=== PATIENT | female | born 1945 | race Caucasian/White ===

== ENCOUNTER 2017-10-13 09:44 | Outpatient (CLI) | payer MEDICARE, BC | END 2017-10-13 09:45 | disposition home or self-care (01) | LOC: BICRAD 09:44 | PROVIDERS: ATTEND Allergy & Immunology | DX: Z03.89 Encounter for observation for other suspected diseases and conditions ruled out (principal) | CPT/HCPCS: 71046 ==

== ENCOUNTER → 2019-02-22 | Day surgery (SDC) | payer MEDICARE, BC ==
[2019-02-21 14:52] VITALS: BMI 36.0
[~2019-02-22] MED LIST: Dexamethasone 20 MG/5 ML VIAL ONE; Lidocaine 1% PF 5 ML VIAL ONE; Ondansetron PF 4 MG/2 ML Vial ONE; PHENYLEPHRINE-NS 100 MCG/ML 10 ML SYRINGE ONE; PROPOFOL 200 MG/20 ML VIAL ONE; ePHEDrine 50 MG/ML VIAL ONE
[2019-02-22 11:59] LABS: Hemoglobin 12.4 g/dL (12.0-16.0); Mean Corpuscular HGB CONC 33.9 g/dL (32.0-36.0); Mean Corpuscular Hemoglobin 29.2 pg (27.0-31.0); Mean Platelet Volume 6.4 fL (7.4-10.4); Platelet Count 205 thou/uL (130-400); RBC Distribution Width 12.7 % (11.5-14.5); Red Blood Cell (RBC) Count 4.26 mill/uL (4.20-5.40); White Blood Cell (WBC) Count 6.3 thou/uL (4.8-10.8)
[2019-02-22 12:21] LABS: Anion Gap 10 mmol/L (10-20); BUN (Urea Nitrogen) 11 mg/dL (9.8-20.1); Calc. Creatinine Clearance 91 mL/min (70-130); Calcium 9.1 mg/dL (7.8-10.44); Carbon Dioxide 25 mmol/L (23-31); Chloride 102 mmol/L (98-107); Estimated GFR-MDRD 67; Glucose 181 mg/dL (83-110); Potassium 4.1 mmol/L (3.5-5.1); Sodium 133 mmol/L (136-145)
--- NOTE | 2019-02-22 13:02 | MRI ---
EXAM: MRI Lumbar Spine WO Con PROVIDED CLINICAL HISTORY: Chronic low back pain COMPARISON: None FINDINGS: 5 lumbar vertebral bodies are assumed. Grade 1 anterolisthesis of L4 on L5. Lumbar alignment appears otherwise normal. Vertebral body heights are preserved. No focal concerning regional marrow signal abnormality apparent. The conus medullaris is normal in signal and terminates at an appropriate level . The visualized extra spinal soft tissues demonstrate no significant abnormality. At L1-2, there is no significant central canal or foraminal narrowing apparent. At L2-3, there is a broad-based disc bulge and bilateral facet arthritis. There is no significant for aminal narrowing apparent. Mild central canal stenosis. At L3-4, there is bilateral facet arthritis without significant central canal stenosis apparent. Ther e is mild left foraminal narrowing. At L4-5, there is a broad-based disc bulge and advanced bilateral facet arthritis. There is moderate central canal stenosis. There is severe right and moderate left foraminal narrowing. At L5-S1, there is bilateral facet arthritis without significant central canal or foraminal narrowing apparent. IMPRESSION: Lumbar degenerative changes producing canal and foraminal narrowing as described above.
== END ==
LOC: SDC/OP 02-08 11:19
PROVIDERS: ATTEND Internal Medicine
DX: M48.062 Spinal stenosis, lumbar region with neurogenic claudication (principal); M54.16 Radiculopathy, lumbar region
CPT/HCPCS: 36415; 72148; 80048; 85027; 93005; 93010; J1100; J2001; J2405; J2704; J3490

== ENCOUNTER 2019-03-07 13:20 | Outpatient (CLI) | payer MEDICARE, BC ==
[2019-03-07 14:03] LABS: #Eosinphils 0.2 thou/uL (0.0-0.7); #Lymphocytes 2.2 thou/uL (1.20-3.40); #Monocytes 0.6 thou/uL (0.11-0.59); #Neutrophils 4.1 thou/uL (1.40-6.50); %Basophils 0.5 % (0.0-1.0); %Eosinophils 2.4 % (0.0-10.0); %Lymphocytes 30.5 % (21.0-51.0); %Neutrophils 58.6 % (42.0-75.0); Hemoglobin 12.7 g/dL (12.0-16.0); Mean Corpuscular HGB CONC 34.1 g/dL (32.0-36.0); Mean Corpuscular Hemoglobin 29.5 pg (27.0-31.0); Mean Corpuscular Volume 86.5 fL (78.0-98.0); Mean Platelet Volume 6.4 fL (7.4-10.4); Platelet Count 214 thou/uL (130-400); RBC Distribution Width 12.7 % (11.5-14.5); Red Blood Cell (RBC) Count 4.29 mill/uL (4.20-5.40); White Blood Cell (WBC) Count 7.1 thou/uL (4.8-10.8)
[2019-03-07 14:09] LABS: INR-International Normal Ratio 1.1; PTT 30.3 SEC (22.9-36.1); Prothrombin Time 13.8 SEC (12.0-14.7)
[2019-03-07 14:24] LABS: ALT (SGPT) 19 U/L (8-55); AST (SGOT) 15 U/L (5-34); Albumin 3.9 g/dL (3.4-4.8); Alkaline Phosphatase 77 U/L (40-110); Anion Gap 10 mmol/L (10-20); BUN (Urea Nitrogen) 12 mg/dL (9.8-20.1); Bilirubin, Direct 0.2 mg/dL (0.1-0.3); Bilirubin, Total 0.4 mg/dL (0.2-1.2); Calc. Creatinine Clearance 0 mL/min (70-130); Calcium 9.5 mg/dL (7.8-10.44); Carbon Dioxide 29 mmol/L (23-31); Chloride 102 mmol/L (98-107); Estimated GFR-MDRD 58; Globulin 2.6 g/dL (2.4-3.5); Glucose 210 mg/dL (83-110); Potassium 3.9 mmol/L (3.5-5.1); Protein, Total 6.5 g/dL (6.0-8.3); Sodium 137 mmol/L (136-145)
--- NOTE | 2019-03-07 20:45 | EKG ---
Test Reason : Blood Pressure : / mmHG Vent. Rate : 063 BPM Atrial Rate : 063 BPM P-R Int : 150 ms QRS Dur : 090 ms QT Int : 398 ms P-R-T Axes : 078 055 050 degrees QTc Int : 407 ms Normal sinus rhythm with sinus arrhythmia Normal ECG When compared with ECG of 22-FEB-2019 11:38, (Unconfirmed) No changes Confirmed by ROMELIA GOLDMAN, SBailee ([id number]) on 03/07/2019 8:44:40 PM Referred By: YASMIN Confirmed By:DR. Yonathan LEÓN MD
== END 2019-03-07 13:21 | disposition home or self-care (01) ==
LOC: LABBT 13:20
PROVIDERS: ATTEND Internal Medicine Cardiovascular Disease
DX: Z01.818 Encounter for other preprocedural examination (principal)
CPT/HCPCS: 80053; 80076; 85025; 85610; 85730; 93005; 93010

== ENCOUNTER 2019-03-13 07:03 | Day surgery (SDC) | payer MEDICARE, BC ==
[2019-03-07 13:02] VITALS: BMI 36.0
[2019-03-13] MEDS ORDERED: Diazepam 5 MG TAB ONE (08:07)
[2019-03-13] MEDS ORDERED: Lidocaine 1% (PF) 30 ML VIAL ONE (08:56)
[2019-03-13 09:05] LABS: Cardiac Risk 3.3 (Less than 4.5)
[2019-03-13] MEDS ORDERED: Midazolam HCl 2 mg/2 ml Vial ONE (09:34)
[2019-03-13] MEDS ORDERED: Iopamidol 370 76% 100 ML VIAL ONE (09:42)
--- NOTE | 2019-03-13 19:33 | DIS ---
DATE OF ADMISSION: 03/13/2019 DATE OF DISCHARGE: 03/13/2019 DISCHARGE DIAGNOSES: 1. Coronary artery disease. 2. Hypertension. 3. Dyslipidemia. 4. Diabetes mellitus. 5. GE reflux. This patient presents for evaluation of increasing chest discomfort. The patient has a long history of coronary artery disease. In 2014, she underwent a cardiac catheterization and found to have moderate CAD. The patient has been on medical therapy. She reported having increasing angina. In February, the patient was in the hospital with recurrent chest pain. She underwent a Cardiolite stress, revealed normal left ventricular systolic function with no evidence of ischemia. The patient continued to have chest discomfort and was admitted for further cardiac evaluation. HOSPITAL COURSE: the patient underwent a left heart catheterization and found to have normal left ventricular ejection fraction of 55% to 60%. The LAD had a 30% proximal lesion. The left circumflex artery had a 20% lesion. The right coronary artery had a 50% proximal lesion and 70% lesion in posterior left ventricular branch. The patient was felt to have no progressive coronary artery disease from previous catheterization several years ago. The patient will continue on medical therapy. A followup PET scan will be obtained to see if there is any evidence of ischemia. The patient will continue on her present medical regimen. DISCHARGE MEDICATIONS: Will include the following; 1. Protonix 40 daily. 2. Norvasc 5 mg daily. 3. Plavix 75 daily. 4. Micardis 40 daily. 5. Vascepa two tablets p.o. b.i.d. 6. Ranexa 1000 b.i.d. 7. Bystolic 20 daily. 8. Crestor 10 daily. 9. Hydrochlorothiazide 25 mg p.o. daily. 10. Trulicity. 11. Insulin. Please call my office. Job ID: [id number]
== END 2019-03-13 16:00 | disposition home or self-care (01) ==
LOC: CCL 07:03
PROVIDERS: ATTEND Internal Medicine Cardiovascular Disease
PROC: 4A023N7 Measurement of Cardiac Sampling and Pressure, Left Heart, Percutaneous Approach (ICD-10-PCS; principal; 2019-03-13)
PROC: B2111ZZ Fluoroscopy of Multiple Coronary Arteries using Low Osmolar Contrast (ICD-10-PCS; 2019-03-13)
DX: I25.10 Atherosclerotic heart disease of native coronary artery without angina pectoris (principal); E11.9 Type 2 diabetes mellitus without complications; I10 Essential (primary) hypertension; E78.00 Pure hypercholesterolemia, unspecified; K21.9 Gastro-esophageal reflux disease without esophagitis; E78.5 Hyperlipidemia, unspecified; E66.09 Other obesity due to excess calories; Z68.36 Body mass index [BMI] 36.0-36.9, adult; Z79.02 Long term (current) use of antithrombotics/antiplatelets; Z79.4 Long term (current) use of insulin; Z79.899 Other long term (current) drug therapy; Z88.0 Allergy status to penicillin; Z88.2 Allergy status to sulfonamides; Z88.5 Allergy status to narcotic agent
CPT/HCPCS: 36415; 80061; 93458; 99152; 99153; C1769; J1644; J2001; J2250; Q9967

== ENCOUNTER 2020-07-24 01:01 | Inpatient (IN) | payer MEDICARE, BC ==
[2020-07-24 01:30] LABS: #Basophils 0.1 thou/uL (0.0-0.2); #Eosinphils 0.2 thou/uL (0.0-0.7); #Lymphocytes 3.4 thou/uL (1.20-3.40); #Monocytes 0.6 thou/uL (0.11-0.59); %Basophils 1.3 % (0.0-1.0); %Eosinophils 2.7 % (0.0-10.0); %Lymphocytes 40.4 % (21.0-51.0); %Monocytes 7.7 % (0.0-10.0); %Neutrophils 47.9 % (42.0-75.0); Hemoglobin 13.2 g/dL (12.0-16.0); Mean Corpuscular HGB CONC 33.4 g/dL (32.0-36.0); Mean Corpuscular Hemoglobin 29.4 pg (27.0-31.0); Mean Platelet Volume 6.7 fL (7.4-10.4); Platelet Count 215 thou/uL (130-400); RBC Distribution Width 12.4 % (11.5-14.5); Red Blood Cell (RBC) Count 4.48 mill/uL (4.20-5.40); White Blood Cell (WBC) Count 8.4 thou/uL (4.8-10.8)
[2020-07-24] MEDS ORDERED: Aspirin Chewable 81 MG TAB ONE ×2 (01:31→08:38)
[2020-07-24 01:50] LABS: ALT (SGPT) 25 U/L (8-55); AST (SGOT) 21 U/L (5-34); Alkaline Phosphatase 82 U/L (40-110); Anion Gap 15 mmol/L (10-20); BUN (Urea Nitrogen) 23 mg/dL (9.8-20.1); Bilirubin, Total 0.3 mg/dL (0.2-1.2); CK (CPK) 436 U/L (29-168); Calc. Creatinine Clearance 0 mL/min (70-130); Calcium 9.4 mg/dL (7.8-10.44); Carbon Dioxide 26 mmol/L (23-31); Chloride 102 mmol/L (98-107); Glucose 242 mg/dL (83-110); Potassium 4.5 mmol/L (3.5-5.1); Sodium 138 mmol/L (136-145)
--- NOTE | 2020-07-24 03:40 | PDOC.HHP ---
Hospitalist HPI Chest pain History of Present Illness: This is a 75-year-old male patient with a history of coronary artery disease, hypertension, diabetes mellitus and hyperlipidemia, WPW status post ablation who presents to the ED on account of chest pain noted earlier this morning. Of note she has been having intermittent chest pain for the past couple of weeks at least every other day with activity. Earlier this morning she was taking her pills for GERD when stifling chest pain up to 7-8 over 10 radiating to her neck and crushing in nature. Nonradiating. She noted no associated nausea or sweating palpitations wheeze or shortness of breath. She however notes intermittent swelling of her feet bilaterally She took nitroglycerin this time to no avail. She subsequently added Ranexa. He has been decided that she should come to the ED and has brought her in. Pain started to resolve by the time she got here. Of note she had cardiac catheterization in [address] Pérez's noting 30% stenosis in LAD, 20% in proximal RCA and 20% circumflex. Last echocardiogram about 5 months ago showed EF of 60 to 65% with no significant structural defects. At presentation her blood pressure was 203/85, pulse 74, respiratory 20 and saturation 97% on room air. Labs showed unremarkable CBC, BMP showed hyperglycemia of 242 and creatinine kinase of 436. Troponin was 0.015. EKG showed normal sinus rhythm and chest x- ray revealed some bilateral congestion. She received aspirin at presentation prior to hospitalist team being consulted for admission. Allergies/Adverse Reactions: Allergy/AdvReac Type Severity Reaction Status Date / Time codeine Allergy Intermediate SEVERE Verified 08/27/19 14:08 HEADACHE, RASH Penicillins Allergy Intermediate WELPS Verified 08/27/19 14:08 Sulfa (Sulfonamide Allergy Intermediate Rash Verified 08/27/19 14:08 Antibiotics) Home Medications: Medication Instructions Recorded Confirmed Type Clopidogrel Bisulfate [Plavix] 75 mg PO DAILY 06/29/15 03/07/19 History Insulin Glargine,Hum.Rec.Anlog 70 unit SQ BID 06/29/15 03/07/19 History [Lantus Solostar] Levothyroxine Sodium [Synthroid] 75 mcg PO DAILY 06/29/15 03/07/19 History Nebivolol HCl [Bystolic] 20 mg PO BID 06/29/15 03/07/19 History Nitroglycerin [Nitrostat] 0.4 mg SL Q5MIN PRN 06/29/15 03/07/19 History Pantoprazole [Protonix] 40 mg PO DAILY 06/29/15 03/07/19 History Amlodipine [Norvasc] 1 tab PO DAILY 02/21/19 03/07/19 History Aspirin/Acetaminophen/Caffeine 2 tab PO BID PRN 02/21/19 03/07/19 History [Excedrin Extra Strength Caplet] Hydrochlorothiazide 1 tab PO DAILY 02/21/19 03/07/19 History Icosapent Ethyl [Vascepa] 2 cap PO BID 02/21/19 03/07/19 History Insulin Lispro [Humalog Kwikpen] 15 unit SQ TID-WM PRN 02/21/19 03/07/19 History Ranolazine [Ranolazine ER] 1 tab PO BID 02/21/19 03/07/19 History Rosuvastatin Calcium 40 mg PO HS 02/21/19 03/07/19 History Amlodipine [Norvasc] 5 mg PO DAILY 02/24/19 02/24/19 History Amlodipine [Norvasc] 5 mg PO DAILY 02/24/19 02/24/19 History Aspirin/Acetaminophen/Caffeine 2 tab PO Q6H 02/24/19 02/24/19 History [Excedrin Extra Strength Caplet] Clopidogrel Bisulfate [Clopidogrel] 75 mg PO HS 02/24/19 02/24/19 History HumaLOG [HumaLOG Vial] 15 units SC AC 02/24/19 02/24/19 History Hydrochlorothiazide 25 mg PO DAILY 02/24/19 02/24/19 History Icosapent Ethyl [Vascepa] 2 cap PO BID 02/24/19 02/24/19 History Insulin Glargine,Hum.Rec.Anlog 75 unit SC BID 02/24/19 02/24/19 History [Lantus] Levothyroxine Sodium 75 mg PO DAILY 02/24/19 02/24/19 History Nebivolol HCl [Bystolic] 40 mg PO BID 02/24/19 02/24/19 History Pantoprazole [Protonix] 40 mg PO DAILY 02/24/19 02/24/19 History Ranolazine [Ranolazine ER] 1,000 mg PO BID 02/24/19 02/24/19 History Rosuvastatin [Crestor] 10 mg PO HS 02/24/19 02/24/19 History Telmisartan [Micardis] 40 mg PO BID 02/24/19 02/24/19 History Icosapent Ethyl [Vascepa] 1 gm PO DAILY 03/07/19 03/07/19 History Telmisartan [Micardis] 40 mg PO BID 03/07/19 03/07/19 History Past History: PMHx:coronary artery disease, hypertension, diabetes mellitus and hyperlipidemia PSHx: Cholecystectomy, hysterectomy, ablation for WPW FHx: Diabetes mellitus, hypertension, heart failure, HI Social: Lives with . Denies smoking, alcohol or illicit drug use Hospitalist HPI ROS Constitutional: denies: fever, chills, sweats, weakness, malaise Respiratory: denies: cough, shortness of breath, hemoptysis, SOB with excertion Cardiovascular: reports: chest pain, palpitations, edema. denies: orthopnea, paroxysmal noc. dyspnea Gastrointestinal: denies: nausea, vomiting, abdominal pain, diarrhea Genitourinary: denies: dysuria, frequency, incontinence, hematuria Musculoskeletal: denies: neck pain, shoulder pain, arm pain, back pain Neurological: denies: weakness, numbness, incoordination, change in speech All other systems reviewed; all pertinent +/- noted in HPI/Subj Hospitalist Exam General Appearance: awake alert General - other findings: In no acute distress Eye: PERRL, anicteric sclera ENT: normocephalic atraumatic Respiratory: CTAB, no wheezes, no rales, no ronchi Gastrointestinal: soft, non-tender, non-distended, normal bowel sounds Extremities: no cyanosis, no clubbing, 1+ LE edema Skin: normal turgor Neurological: cranial nerve grossly intact, no weakness, no focal deficits Psychiatric: normal affect, normal behavior, A&O x 3 Hospitalist Results Result Diagrams: 07/24/20 01:15 07/24/20 01:15 Lab results: Laboratory Last Values WBC 8.4 thou/uL (4.8-10.8) 07/24/20 01:15 RBC 4.48 mill/uL (4.20-5.40) 07/24/20 01:15 Hgb 13.2 g/dL (12.0-16.0) 07/24/20 01:15 Hct 39.4 % (36.0-47.0) 07/24/20 01:15 MCV 88.0 fL (78.0-98.0) 07/24/20 01:15 MCH 29.4 pg (27.0-31.0) 07/24/20 01:15 MCHC 33.4 g/dL (32.0-36.0) 07/24/20 01:15 RDW 12.4 % (11.5-14.5) 07/24/20 01:15 Plt Count 215 thou/uL (130-400) 07/24/20 01:15 MPV 6.7 fL (7.4-10.4) L 07/24/20 01:15 Neutrophils % 47.9 % (42.0-75.0) 07/24/20 01:15 Lymphocytes % 40.4 % (21.0-51.0) 07/24/20 01:15 Monocytes % 7.7 % (0.0-10.0) 07/24/20 01:15 Eosinophils % 2.7 % (0.0-10.0) 07/24/20 01:15 Basophils % 1.3 % (0.0-1.0) H 07/24/20 01:15 Neutrophils # 4.0 thou/uL (1.40-6.50) 07/24/20 01:15 Lymphocytes # 3.4 thou/uL (1.20-3.40) 07/24/20 01:15 Monocytes # 0.6 thou/uL (0.11-0.59) H 07/24/20 01:15 Eosinophils # 0.2 thou/uL (0.0-0.7) 07/24/20 01:15 Basophils # 0.1 thou/uL (0.0-0.2) 07/24/20 01:15 Sodium 138 mmol/L (136-145) 07/24/20 01:15 Potassium 4.5 mmol/L (3.5-5.1) 07/24/20 01:15 Chloride 102 mmol/L (98-107) 07/24/20 01:15 Carbon Dioxide 26 mmol/L (23-31) 07/24/20 01:15 Anion Gap 15 mmol/L (10-20) 07/24/20 01:15 BUN 23 mg/dL (9.8-20.1) H 07/24/20 01:15 Creatinine 1.10 mg/dL (0.6-1.1) 07/24/20 01:15 Estimated GFR (MDRD) 49 07/24/20 01:15 Glucose 242 mg/dL (83-110) H 07/24/20 01:15 Calcium 9.4 mg/dL (7.8-10.44) 07/24/20 01:15 Total Bilirubin 0.3 mg/dL (0.2-1.2) 07/24/20 01:15 AST 21 U/L (5-34) 07/24/20 01:15 ALT 25 U/L (8-55) 07/24/20 01:15 Alkaline Phosphatase 82 U/L (40-110) 07/24/20 01:15 Creatine Kinase 436 U/L (29-168) H 07/24/20 01:15 Troponin I 0.015 ng/mL (< 0.028) 07/24/20 01:15 Serum Total Protein 7.0 g/dL (5.8-8.1) 07/24/20 01:15 Albumin 4.0 g/dL (3.4-4.8) 07/24/20 01:15 Globulin 3.0 g/dL (2.4-3.5) 07/24/20 01:15 Albumin/Globulin Ratio 1.3 g/dL (1.2-2.2) 07/24/20 01:15 Hospitalist H&P A/P Plan: This is a 75-year-old female patient history of diabetes mellitus, hypercholesterolemia and WPW presents with chest pain. Chest pain Likely cardiac Pain currently resolved with nitroglycerin and Ranexa Cardiac catheterization about 5 months ago showed no significant coronary stenosis Started on aspirinwe will continue Trend troponin Continue statins N.p.o. Stress test in a.m. Pulmonary congestion Likely heart failure exacerbation Last echo a year ago showed normal EFwe will repeat We will diuresis with Lasix for now Monitor electrolytes Cardiology consultation if indicated Hypertension BP elevated at presentation however currently systolic in the 130s As needed hydralazine Monitor Diabetes mellitus Correctional insulin Monitor glucose. History of WPW status post ablation VT prophylaxisLovenox CODE STATUS full code
[2020-07-24] MEDS ORDERED: Dextrose 50% Abboject 50 ML SYRINGE SLOW IVP PRN (04:12)
[2020-07-24] MEDS ORDERED: Dextrose 5% in Water 1,000 ML IV PRN (04:12)
[2020-07-24] MEDS ORDERED: Nitroglycerin 0.4 MG TAB (25 Tab Bottle) SL PRN (04:30)
[2020-07-24 05:30] LABS: Troponin I 0.015 ng/mL (< 0.028)
--- NOTE | 2020-07-24 07:57 | RAD ---
Exam: Chest one view HISTORY:Chest pain Comparison: 02/24/2019, 02/23/2019 FINDINGS: Cardiac silhouette: Mildly enlarged cardiac silhouette Aorta: Atherosclerosis Pulmonary vessels: Normal Costophrenic angles: Clear LUNGS: No masses or consolidation. Pneumothorax: None Osseous abnormalities: None IMPRESSION: 1. Atherosclerosis. 2. Mild cardiomegaly. No evidence of congestive heart failure.
[2020-07-24] MEDS: Aspirin Chewable 81 MG TAB PO SCH (08:36)
--- NOTE | 2020-07-24 10:50 | NM ---
Exam: Nuclear medicine cardiac stress with EF and wall motion HISTORY: Chest pain. TECHNIQUE: Patient was administered 32.10 mCi of technetium-99m Myoview intravenously. Stress only im ages were performed. FINDINGS: Homogeneous distribution of radiotracer. End diastolic volume is 70 mL. End-systolic volume is 17 mL. Cardiac gating: Normal wall motion and thickening. 76% ejection fraction. IMPRESSION: 1. Homogeneous distribution of radiotracer. No reversibility or fixed defect. 2. 76% ejection fraction. Transcribed Date/Time: 07/24/2020 11:10 AM
[2020-07-24] MEDS ORDERED: ADENOSINE 60 MG/20 ML VIAL ONE (10:58)
[2020-07-24] MEDS ORDERED: Potassium Chloride 20 MEQ TAB PO SCH (11:00)
[2020-07-24] MEDS ORDERED: Icosapent Ethyl 1 GM CAPSULE PO SCH (11:00)
[2020-07-24] MEDS ORDERED: Nebivolol HCl 5 MG TAB PO SCH (11:00)
[2020-07-24] MEDS ORDERED: Losartan 25 MG TAB PO SCH (11:00)
[2020-07-24] MEDS ORDERED: Furosemide 20 MG TAB PO SCH (11:00)
--- NOTE | 2020-07-24 11:14 | CON ---
DATE OF CONSULTATION: HISTORY OF PRESENT ILLNESS: The patient is a 75-year-old woman, who presents with midsternal chest discomfort. The patient has a long history of coronary artery disease. She previously underwent a cardiac catheterization in 2014. She was found to have 70% lesion in the right coronary artery. The patient was placed on medical therapy. In 2019, she presented with recurrent chest pain. She underwent a repeat cardiac catheterization. She was found to have a 30% mid LAD lesion, 20% left circumflex lesion. The right coronary had a 20% proximal lesion, 50% mid lesion, and a 70% lesion in the posterior left ventricular branch. The patient was placed on medical therapy. The patient has had chronic stable angina. She was in her usual state of health when yesterday she developed severe midsternal chest pain. This occurred after she swallowed a pill. She became anxious. She had difficulty swallowing a pill. Her blood pressure became elevated. She felt that her blood pressure was elevated and started having chest pain that radiated into her jaw. The patient took Ranexa and eventually a nitroglycerin tablet. Her chest pain resolved after approximately 30 minutes. The patient does report that recently she was taken off amlodipine because of lower extremity edema. The patient denies having any present chest discomfort. PAST MEDICAL HISTORY: 1. Coronary artery disease. 2. Eldrv-Dmldfihpb-Nigbt syndrome. 3. Hypertension. 4. Dyslipidemia. 5. Diabetes mellitus. 6. GE reflux. PAST SURGICAL HISTORY: Bladder suspension, cholecystectomy, hysterectomy, and foot surgery. FAMILY HISTORY: No family history of heart disease. ALLERGIES: CODEINE, PENICILLIN, SULFA, AND NIACIN. SOCIAL HISTORY: Nonsmoker. REVIEW OF SYSTEMS: Ten-point system unremarkable. PHYSICAL EXAMINATION: GENERAL: This is an obese woman, in no acute distress. VITAL SIGNS: Blood pressure 135/50. NECK: Showed no jugular venous distention. LUNGS: Clear to auscultation. HEART: Regular rate and rhythm. Normal S1 and S2 with a 1/6 systolic murmur. ABDOMEN: Nondistended. EXTREMITIES: Showed no edema. VASCULAR: Radial pulses are 2+. LABORATORY DATA: Sodium 138, potassium 4.5, chloride 102, bicarbonate 26, BUN 23, creatinine 1.1, and glucose 242. Troponin was 0.03. BNP 25. White blood cell count 8.4, hemoglobin 13.2, hematocrit 39.4, and platelets are 215. EKG normal sinus rhythm, normal ECG. IMPRESSION: 1. Unstable angina. 2. History of coronary artery disease. 3. Hypertension. 4. Dyslipidemia. 5. Diabetes mellitus. 6. Obesity. 7. History of Qqvyr-Dqibwwwsx-Kaoym syndrome. PLAN: This patient from a cardiac standpoint had an episode of angina. She has recently been taken off amlodipine. Her blood pressure was markedly elevated on admission. The patient states she has been compliant with her medications. I will try her again on Imdur. I will try to add a nitrate to her medical regimen. She does not seem to tolerate Norvasc because of edema. We will follow this patient with you through her hospitalization. Job ID: [id number] MTDD
[2020-07-24 11:28] LABS: SARS-CoV-2 PCR by NAA Not Detected (NotDetected)
[2020-07-24] MEDS ORDERED: Furosemide 40 MG/4 ML VIAL ONE (11:36)
[2020-07-24] MEDS ORDERED: Potassium Chloride 20 MEQ TAB ONE ×2 (11:36)
[2020-07-24] MEDS ORDERED: Enoxaparin Sodium 40 MG/0.4 ML SYRINGE ONE (11:36)
[2020-07-24] MEDS: Furosemide 40 MG/4 ML VIAL SLOW IVP SCH (11:44)
[2020-07-24] MEDS: Enoxaparin Sodium 40 MG/0.4 ML SYRINGE SC SCH (11:44)
[2020-07-24 14:24] VITALS: BMI 39.3
--- NOTE | 2020-07-24 17:10 | PDOC.HOSPP ---
- Subjective Encounter Date: 07/24/20 Encounter Time: 15:00 Subjective: The patient reported severe chest pain radiating to jaw and neck around 1:00 am. She had relief with nitroglycerin and ranexa. She ambulated to the bathroom this afternoon and had no recurrence of chest pain Stress test negative. Pt states her BP was 230 systolic this morning but improved now to 111. She had some abd pain this afternoon from taking all of her BP meds at once - Objective Vital Signs & Weight: Vital Signs (12 hours) Temp Pulse Resp BP BP Pulse Ox 07/24/20 14:10 97.3 F L 73 16 111/54 L 96 07/24/20 13:44 97.7 F 70 16 116/52 L 97 07/24/20 11:10 63 16 108/44 L 97 Weight Weight 229 lb 3.2 oz Result Diagrams: 07/24/20 01:15 07/24/20 01:15 Additional Labs: Accuchecks 07/24/20 08:44 POC Glucose 156 H Hospitalist ROS - Review of Systems Constitutional: denies: fever, chills - Medication Medications: Active Medications Generic Name Dose Route Start Last Admin Trade Name Freq PRN Reason Stop Dose Admin Aspirin 81 mg 07/24/20 09:00 07/24/20 08:36 Aspirin Chewable 81 Mg Tab PO 81 mg DAILY MYLES Administration Enoxaparin Sodium 40 mg 07/24/20 09:00 07/24/20 11:44 Enoxaparin Sodium 40 Mg/0.4 Ml Syringe SC 40 mg 0900 MYLES Administration Furosemide 40 mg 07/24/20 09:00 07/24/20 11:44 Furosemide 40 Mg/4 Ml Vial SLOW IVP 40 mg DAILY MYLES Administration Hospitalist Exam Vitals: Vital Signs (12 hours) Temp Pulse Resp BP BP Pulse Ox 07/24/20 14:10 97.3 F L 73 16 111/54 L 96 07/24/20 13:44 97.7 F 70 16 116/52 L 97 07/24/20 11:10 63 16 108/44 L 97 Weight Weight 229 lb 3.2 oz General Appearance: NAD, awake alert General - other findings: morbidly obese Eye: PERRL, anicteric sclera ENT: normocephalic atraumatic, no oropharyngeal lesions Neck: no JVD Heart: RRR, no murmur, no gallops, no rubs Respiratory: CTAB, no wheezes, no rales, no ronchi Gastrointestinal: soft, non-tender, non-distended, normal bowel sounds Extremities: no cyanosis, no clubbing, no edema Skin: normal turgor, no rashes Neurological: cranial nerve grossly intact, normal sensation to touch, no focal deficits, no new deficit Musculoskeletal: normal tone, normal strength, no muscle wasting Psychiatric: A&O x 3 Hosp A/P - Plan ECHO: EF 65-70%. Mild to moderate TR. Diastolic dysfunction This is a 75 year old female with PMH of CAD, HTN, hypothyroidism presenting with chest pain and indeterminate troponin #Unstable Angina #Hypertensive urgency - had chest pain radiating to jaw relieved with nitroglycerin. Troponin peaked to 0.030 and downtrended. ECHo showed no wall motion abnormalities - BP now controlled. Start imdur tomorrow, continue nebivolol and losartan Hypothyroid - continue levothyroxine Diabetes - continue sliding scale
[2020-07-24] MEDS: HumaLOG 300 UNITS/3 ML VIAL SC PRN ×2 (17:26→20:20)
[2020-07-24 17:37] LABS: CKMB 7.3 ng/mL (0-6.6)
[2020-07-24] MEDS: Icosapent Ethyl 1 GM CAPSULE PO SCH (20:09)
[2020-07-24] MEDS: Losartan 25 MG TAB PO SCH (20:09)
[2020-07-24] MEDS: Nebivolol HCl 5 MG TAB PO SCH (20:10)
[2020-07-24] MEDS ORDERED: Non-Formulary Item 1 EACH (Ranolazine [Ranolazine Er] 1,000 MG Tab.Er.12h) PO SCH (21:00)
[2020-07-24] MEDS ORDERED: Non-Formulary Item 1 EACH (Nebivolol Hcl [Bystolic] 20 MG Tablet) PO SCH (21:00)
[2020-07-25] MEDS: Levothyroxine Sodium 75 MCG TAB PO SCH (05:30)
[2020-07-25] MEDS: HumaLOG 300 UNITS/3 ML VIAL SC PRN ×3 (05:32→18:23)
[2020-07-25 07:53] LABS: #Basophils 0.1 thou/uL (0.0-0.2); #Eosinphils 0.2 thou/uL (0.0-0.7); #Lymphocytes 2.5 thou/uL (1.20-3.40); #Monocytes 0.6 thou/uL (0.11-0.59); #Neutrophils 3.8 thou/uL (1.40-6.50); %Basophils 0.9 % (0.0-1.0); %Lymphocytes 34.9 % (21.0-51.0); %Monocytes 8.2 % (0.0-10.0); %Neutrophils 52.9 % (42.0-75.0); Hemoglobin 12.9 g/dL (12.0-16.0); Mean Corpuscular HGB CONC 34.8 g/dL (32.0-36.0); Mean Corpuscular Hemoglobin 31.1 pg (27.0-31.0); Mean Corpuscular Volume 89.3 fL (78.0-98.0); Mean Platelet Volume 6.9 fL (7.4-10.4); Platelet Count 203 thou/uL (130-400); RBC Distribution Width 12.5 % (11.5-14.5); Red Blood Cell (RBC) Count 4.14 mill/uL (4.20-5.40); White Blood Cell (WBC) Count 7.2 thou/uL (4.8-10.8)
[2020-07-25 08:10] LABS: Anion Gap 12 mmol/L (10-20); BUN (Urea Nitrogen) 24 mg/dL (9.8-20.1); Calc. Creatinine Clearance 76 mL/min (70-130); Calcium 8.8 mg/dL (7.8-10.44); Carbon Dioxide 30 mmol/L (23-31); Chloride 102 mmol/L (98-107); Glucose 219 mg/dL (83-110); Potassium 4.5 mmol/L (3.5-5.1); Sodium 139 mmol/L (136-145)
--- NOTE | 2020-07-25 08:28 | PDOC.HOSPP ---
- Subjective Encounter Date: 07/25/20 (f/u angina) Encounter Time: 08:26 Subjective: Pt was admitted for unstable angina. Pt reports some stomach upset when she takes multiple medications at the same time. States at home she spaces them out. She deneis any current chest pain, n/v. She reports bm's. She had some lightheadedness overnight. - Objective Vital Signs & Weight: Vital Signs (12 hours) Temp Pulse Resp BP Pulse Ox 07/25/20 04:00 98.4 F 85 20 135/78 96 07/25/20 00:00 98.3 F 80 20 112/80 94 L Weight Weight 229 lb 3.2 oz I&O: 07/24/20 07/25/20 07/26/20 06:59 06:59 06:59 Intake Total 610 Balance 610 Result Diagrams: 07/25/20 06:59 07/25/20 06:59 Additional Labs: Accuchecks 07/25/20 07/24/20 07/24/20 05:28 20:07 16:44 POC Glucose 197 H 246 H 287 H 07/24/20 08:44 POC Glucose 156 H EKG Reviewed by me: Yes (tele - sinus 60-70's) Hospitalist ROS - Medication Medications: Active Medications Generic Name Dose Route Start Last Admin Trade Name Alq PRN Reason Stop Dose Admin Aspirin 81 mg 07/24/20 09:00 07/24/20 08:36 Aspirin Chewable 81 Mg Tab PO 81 mg DAILY MYLES Administration Enoxaparin Sodium 40 mg 07/24/20 09:00 07/24/20 11:44 Enoxaparin Sodium 40 Mg/0.4 Ml Syringe SC 40 mg 0900 MYLES Administration Furosemide 40 mg 07/24/20 09:00 07/24/20 11:44 Furosemide 40 Mg/4 Ml Vial SLOW IVP 40 mg DAILY MYLES Administration Insulin Human Lispro 0 units 07/24/20 04:12 07/25/20 05:32 Humalog 300 Units/3 Ml Vial SC 2 unit .MILD SLIDING SCALE PRN Administration Mild Correctional Scale Levothyroxine Sodium 75 mcg 07/25/20 06:00 07/25/20 05:30 Levothyroxine Sodium 75 Mcg Tab PO 75 mcg 0600 MYLES Administration Losartan Potassium 50 mg 07/24/20 21:00 02/19/21 20:09 Losartan 25 Mg Tab PO 50 mg BID MYLES Administration Miscellaneous Medication 2 gm 07/24/20 21:00 07/24/20 20:09 Icosapent Ethyl 1 Gm Capsule PO 2 gm BID MYLES Administration Nebivolol 20 mg 07/24/20 21:00 07/24/20 20:10 Nebivolol Hcl 5 Mg Tab PO 20 mg BID MYLES Administration Ranolazine 1,000 mg 07/24/20 21:00 07/24/20 20:10 Ranolazine 500 Mg Tab PO 1,000 mg BID MYLES Administration Hospitalist Exam Vitals: Vital Signs (12 hours) Temp Pulse Resp BP Pulse Ox 07/25/20 04:00 98.4 F 85 20 135/78 96 07/25/20 00:00 98.3 F 80 20 112/80 94 L Weight Weight 229 lb 3.2 oz General Appearance: NAD Heart: RRR, no murmur Respiratory: CTAB, no wheezes, no rales, no ronchi Gastrointestinal: soft, non-tender, non-distended Extremities: no cyanosis, no clubbing, no edema Psychiatric: normal affect Hosp A/P (1) Unstable angina Status: Acute (2) CAD (coronary artery disease) Code(s): I25.10 - ATHSCL HEART DISEASE OF [place] CORONARY ARTERY W/O ANG PCTRS Status: Chronic (3) DM type 2 (diabetes mellitus, type 2) Status: Chronic Qualifiers: Diabetes mellitus long-term insulin use: with long-term use (4) HTN (hypertension) Code(s): I10 - ESSENTIAL (PRIMARY) HYPERTENSION Status: Chronic (5) Hypothyroid Code(s): E03.9 - HYPOTHYROIDISM, UNSPECIFIED Status: Acute - Plan #Unstable Angina #Hypertensive urgency - had chest pain radiating to jaw relieved with nitroglycerin. Troponin peaked to 0.030 and downtrended. - echo and stress test unremarkable - on imdur in addition to ranexa, beta-romina, arb and diuretic Hypothyroid - continue levothyroxine - check TSH in am Diabetes - not optimally controlled -add 10 units lantus daily - continue SSI DVT prophy - lovenox GI prophy - not indicated - on home PPI reviewed plan of care with patient/, no questions or further needs at end of eval. Addendum - 17:31 - reviewed with RN and pt takes lantus 100 units BID in addition to meal insulin 20 units TID. Will add 40 units lantus tonight, change to aggressive SSI and bedtime SSI and monitor
[2020-07-25] MEDS ORDERED: Furosemide 20 MG TAB PO SCH (09:00)
[2020-07-25] MEDS: Icosapent Ethyl 1 GM CAPSULE PO SCH ×2 (10:07→21:14)
[2020-07-25] MEDS: Losartan 25 MG TAB PO SCH ×2 (10:08→21:15)
[2020-07-25] MEDS: Potassium Chloride 20 MEQ TAB PO SCH (10:08)
[2020-07-25] MEDS: Aspirin Chewable 81 MG TAB PO SCH (10:08)
[2020-07-25] MEDS: Furosemide 20 MG TAB PO SCH (10:09)
[2020-07-25] MEDS: Nebivolol HCl 5 MG TAB PO SCH ×2 (10:09→21:16)
[2020-07-25] MEDS: Clopidogrel Bisulfate 75 MG TAB PO SCH (10:09)
[2020-07-25] MEDS: Enoxaparin Sodium 40 MG/0.4 ML SYRINGE SC SCH (10:09)
[2020-07-25] MEDS: Insulin Glargine 10 UNITS in Pre-Filled Syringe 1 EACH SC SCH (10:10)
--- NOTE | 2020-07-25 12:04 | PRG ---
DATE OF SERVICE: 07/25/2020 SUBJECTIVE: Ms. Mares is currently doing well. No current complaints. She appears to be doing well on current medical therapy. Blood pressure has also been stable. The patient did undergo a noninvasive stress study that showed no significant ischemia present. LVEF 76%. She also has had an angiogram done in the past that showed moderate to severe coronary artery disease in small vessels. OBJECTIVE: VITAL SIGNS: Blood pressure 144/70, pulse 70, temperature 97.9. LUNGS: Clear to auscultation. HEART: Regular rate and rhythm. ABDOMEN: Soft, nontender, nondistended. EXTREMITIES: No edema. LABORATORY DATA: Peak troponin 0.104. IMPRESSION: 1. Chest pressure. 2. Coronary artery disease. RECOMMENDATIONS: Ms. Mares appears to be doing well. She underwent a noninvasive stress study on 07/24/2020 with no significant ischemia present and a normal LVEF. At this point, we will continue with current medical therapy. She is currently on Plavix in addition to aspirin. She has been off Norvasc. To also continue Bystolic in addition to Ranexa. The patient was also placed on Imdur and can titrate up if needed. Job ID: [id number]
[2020-07-25] MEDS: Furosemide 40 MG/4 ML VIAL SLOW IVP SCH (13:23)
--- NOTE | 2020-07-25 15:18 | EKG ---
Test Reason : Blood Pressure : / mmHG Vent. Rate : 071 BPM Atrial Rate : 071 BPM P-R Int : 150 ms QRS Dur : 080 ms QT Int : 380 ms P-R-T Axes : 059 022 051 degrees QTc Int : 412 ms Normal sinus rhythm Normal ECG Confirmed by MAURY AGUIRRE M.D. ([id number]), index editor DIMITRIOS ANGELES ([id number]) on 07/25/2020 3:17:45 PM Referred By: Confirmed By:MAURY AGUIRRE M.D.
[2020-07-25] MEDS ORDERED: HumaLOG 300 UNITS/3 ML VIAL SC PRN (17:29)
[2020-07-25] MEDS ORDERED: Aspirin/APAP/Caffeine Tab (Excedrin Migraine) PO SCH (20:30)
[2020-07-25] MEDS: Insulin Glargine 40 UNITS in Pre-Filled Syringe SC SCH (21:11)
[2020-07-26] MEDS: Levothyroxine Sodium 75 MCG TAB PO SCH (06:04)
[2020-07-26 06:29] LABS: Anion Gap 14 mmol/L (10-20); BUN (Urea Nitrogen) 24 mg/dL (9.8-20.1); Calc. Creatinine Clearance 79 mL/min (70-130); Calcium 8.5 mg/dL (7.8-10.44); Carbon Dioxide 26 mmol/L (23-31); Chloride 100 mmol/L (98-107); Glucose 178 mg/dL (83-110); Potassium 4.5 mmol/L (3.5-5.1); Sodium 135 mmol/L (136-145)
[2020-07-26] MEDS: Icosapent Ethyl 1 GM CAPSULE PO SCH ×2 (09:21→20:57)
[2020-07-26] MEDS: Potassium Chloride 20 MEQ TAB PO SCH (09:21)
[2020-07-26] MEDS: Nebivolol HCl 5 MG TAB PO SCH ×2 (09:22→20:57)
[2020-07-26] MEDS: Clopidogrel Bisulfate 75 MG TAB PO SCH (09:22)
[2020-07-26] MEDS: Aspirin Chewable 81 MG TAB PO SCH (09:22)
[2020-07-26] MEDS: Furosemide 20 MG TAB PO SCH (09:22)
[2020-07-26] MEDS: Losartan 25 MG TAB PO SCH ×2 (09:22→21:05)
[2020-07-26] MEDS: Insulin Glargine 10 UNITS in Pre-Filled Syringe 1 EACH SC SCH (09:23)
[2020-07-26] MEDS: Enoxaparin Sodium 40 MG/0.4 ML SYRINGE SC SCH (09:23)
--- NOTE | 2020-07-26 10:48 | PDOC.HOSPP ---
- Subjective Encounter Date: 07/26/20 (f/u unstable angina) Encounter Time: 10:47 Subjective: Pt reports overall feeling well but tired. She states she has episodes of the onset of angina, followed by difficulty breathing at times when she is layign back. Last episode was this morning. She states she has to sit up, slow her breathing and the sx resolved. she does not remain in the same position for fear of worsening. She denies any n/v/abd pain - Objective Vital Signs & Weight: Vital Signs (12 hours) Temp Pulse Resp BP Pulse Ox 07/26/20 08:00 98.3 F 65 20 127/60 95 07/26/20 04:48 96 07/26/20 04:00 98.1 F 66 16 105/52 L 93 L 07/26/20 00:35 98.2 F 61 20 111/53 L 96 Weight Weight 228 lb 14.4 oz I&O: 07/25/20 07/26/20 07/27/20 06:59 06:59 06:59 Intake Total 610 1280 Balance 610 1280 Result Diagrams: 07/25/20 06:59 07/26/20 06:00 Additional Labs: Accuchecks 07/26/20 07/25/20 07/25/20 05:35 21:09 16:53 POC Glucose 166 H 243 H 237 H 07/25/20 11:17 POC Glucose 300 H EKG Reviewed by me: Yes (tele - sinus 50-70's) Hospitalist ROS - Medication Medications: Active Medications Generic Name Dose Route Start Last Admin Trade Name Freq PRN Reason Stop Dose Admin Aspirin 81 mg 07/24/20 09:00 07/26/20 09:22 Aspirin Chewable 81 Mg Tab PO 81 mg DAILY MYLES Administration Clopidogrel Bisulfate 75 mg 07/25/20 09:00 07/26/20 09:22 Clopidogrel Bisulfate 75 Mg Tab PO 75 mg DAILY MYLES Administration Enoxaparin Sodium 40 mg 07/24/20 09:00 07/26/20 09:23 Enoxaparin Sodium 40 Mg/0.4 Ml Syringe SC 40 mg 0900 MYLES Administration Furosemide 20 mg 07/25/20 09:00 07/26/20 09:22 Furosemide 20 Mg Tab PO 20 mg QAM MYLES Administration Insulin Glargine 10 units/ 0.1 mls @ 0 mls/hr 07/25/20 09:00 07/26/20 09:23 Miscellaneous Medication SC 0.1 mls QAM MYLES Administration Insulin Glargine 40 units/ 0.4 mls @ 0 mls/hr 07/25/20 21:00 07/25/20 21:11 Miscellaneous Medication SC 0.4 mls HS MYLES Administration Insulin Human Lispro 0 units 07/25/20 17:29 07/25/20 18:23 Humalog 300 Units/3 Ml Vial SC 6 unit .AGGRESSIVE SLIDING PRN Administration Aggressive Correctional Scale Insulin Human Lispro 0 units 07/25/20 17:29 07/25/20 21:11 Humalog 300 Units/3 Ml Vial SC 2 unit .BEDTIME SLIDING SC PRN Administration Bedtime Correctional Scale Isosorbide Mononitrate 30 mg 07/25/20 09:00 07/26/20 09:22 Isosorbide Mononitrate Er 30 Mg Tab PO 30 mg QAM MYLES Administration Levothyroxine Sodium 75 mcg 07/25/20 06:00 07/26/20 06:04 Levothyroxine Sodium 75 Mcg Tab PO 75 mcg 0600 MYLES Administration Losartan Potassium 50 mg 07/24/20 21:00 07/26/20 09:22 Losartan 25 Mg Tab PO 50 mg BID MYLES Administration Miscellaneous Medication 2 gm 07/24/20 21:00 07/26/20 09:21 Icosapent Ethyl 1 Gm Capsule PO 2 gm BID MYLES Administration Nebivolol 20 mg 07/24/20 21:00 07/26/20 09:22 Nebivolol Hcl 5 Mg Tab PO 20 mg BID MYLES Administration Pantoprazole Sodium 40 mg 07/25/20 09:00 07/26/20 09:22 Pantoprazole 40 Mg Tab PO 40 mg DAILY MYLES Administration Potassium Chloride 20 meq 07/25/20 09:00 07/26/20 09:21 Potassium Chloride 20 Meq Tab PO 20 meq DAILY MYLES Administration Ranolazine 1,000 mg 07/24/20 21:00 07/26/20 09:22 Ranolazine 500 Mg Tab PO 1,000 mg BID MYLES Administration Hospitalist Exam Vitals: Vital Signs (12 hours) Temp Pulse Resp BP Pulse Ox 07/26/20 08:00 98.3 F 65 20 127/60 95 07/26/20 04:48 96 07/26/20 04:00 98.1 F 66 16 105/52 L 93 L 07/26/20 00:35 98.2 F 61 20 111/53 L 96 Weight Weight 228 lb 14.4 oz General Appearance: NAD Heart: RRR, no murmur Respiratory: CTAB, no wheezes, no rales, no ronchi Gastrointestinal: soft, non-tender, non-distended, normal bowel sounds Extremities: no cyanosis, no clubbing, no edema Psychiatric: normal affect Hosp A/P (1) Unstable angina Status: Acute (2) CAD (coronary artery disease) Code(s): I25.10 - ATHSCL HEART DISEASE OF [place] CORONARY ARTERY W/O ANG PCTRS Status: Chronic (3) DM type 2 (diabetes mellitus, type 2) Status: Chronic Qualifiers: Diabetes mellitus dispatcher automobile rental insulin use: with dispatcher automobile rental use (4) HTN (hypertension) Code(s): I10 - ESSENTIAL (PRIMARY) HYPERTENSION Status: Chronic (5) Hypothyroid Code(s): E03.9 - HYPOTHYROIDISM, UNSPECIFIED Status: Acute - Plan #Unstable Angina - pt continues to have some sx, although different than presentation - message sent to Cards/Dr. Harvey for assistance - continue long-acting nitrate and other meds as ordered #Hypertensive urgency - had chest pain radiating to jaw relieved with nitroglycerin. Troponin peaked to 0.030 and downtrended. - echo and stress test unremarkable - on imdur in addition to ranexa, beta-romina, arb and diuretic Hypothyroid - continue levothyroxine - 0n appropriate replacement - TSH checked today Diabetes - on lantus 40 units at night, 10 units daytime - which is significantly lower than home. Will continue this for now and pt will need close f/u with her PCP or Event Promotions Coordinator DVT prophy - lovenox GI prophy - not indicated - on home PPI reviewed plan of care with patient/, no questions or further needs at end of eval. Await further input from Cardiology to determine timing of discharge to home.
[2020-07-26] MEDS: HumaLOG 300 UNITS/3 ML VIAL SC PRN ×2 (12:06→18:05)
[2020-07-26] MEDS: Acetaminophen 500 MG TAB PO PRN (18:24)
[2020-07-26] MEDS: Insulin Glargine 40 UNITS in Pre-Filled Syringe SC SCH (20:53)
[2020-07-27] MEDS: Levothyroxine Sodium 75 MCG TAB PO SCH (05:42)
[2020-07-27] MEDS: HumaLOG 300 UNITS/3 ML VIAL SC PRN ×2 (05:50→17:36)
[2020-07-27] MEDS: Insulin Glargine 10 UNITS in Pre-Filled Syringe 1 EACH SC SCH (08:46)
[2020-07-27] MEDS: Aspirin Chewable 81 MG TAB PO SCH (08:47)
[2020-07-27] MEDS: Enoxaparin Sodium 40 MG/0.4 ML SYRINGE SC SCH (08:47)
[2020-07-27] MEDS: Potassium Chloride 20 MEQ TAB PO SCH (08:48)
[2020-07-27] MEDS: Losartan 25 MG TAB PO SCH ×2 (08:48→22:59)
[2020-07-27] MEDS: Furosemide 20 MG TAB PO SCH (08:49)
[2020-07-27] MEDS: Clopidogrel Bisulfate 75 MG TAB PO SCH (08:49)
[2020-07-27] MEDS: Nebivolol HCl 5 MG TAB PO SCH ×2 (08:50→23:00)
[2020-07-27] MEDS: Icosapent Ethyl 1 GM CAPSULE PO SCH ×2 (12:10→22:58)
--- NOTE | 2020-07-27 13:27 | PDOC.HOSPP ---
- Subjective Encounter Date: 07/27/20 Encounter Time: 13:26 Subjective: still having episodes of upper chest tightness with SOB - Objective Vital Signs & Weight: Vital Signs (12 hours) Temp Pulse Resp BP Pulse Ox 07/27/20 11:56 97.6 F 67 18 139/77 07/27/20 08:31 97.8 F 71 18 122/68 95 07/27/20 04:00 98.0 F 76 16 134/64 93 L 07/27/20 03:31 94 L Weight Weight 228 lb 14.4 oz I&O: 07/26/20 07/27/20 07/28/20 06:59 06:59 06:59 Intake Total 1280 1790 Balance 1280 1790 Result Diagrams: 07/25/20 06:59 07/26/20 06:00 Additional Labs: Accuchecks 07/27/20 07/27/20 07/26/20 10:17 05:46 20:53 POC Glucose 290 H 223 H 204 H 07/26/20 15:44 POC Glucose 190 H Hospitalist ROS - Medication Medications: Active Medications Generic Name Dose Route Start Last Admin Trade Name Freq PRN Reason Stop Dose Admin Acetaminophen 1,000 mg 07/26/20 18:03 07/26/20 18:24 Acetaminophen 500 Mg Tab PO 1,000 mg Q8H PRN Administration Moderate to Severe Pain (6-10) Aspirin 81 mg 07/24/20 09:00 07/27/20 08:47 Aspirin Chewable 81 Mg Tab PO 81 mg DAILY MYLES Administration Clopidogrel Bisulfate 75 mg 07/25/20 09:00 07/27/20 08:49 Clopidogrel Bisulfate 75 Mg Tab PO 75 mg DAILY MYLES Administration Enoxaparin Sodium 40 mg 07/24/20 09:00 07/27/20 08:47 Enoxaparin Sodium 40 Mg/0.4 Ml Syringe SC 40 mg 0900 MYLES Administration Furosemide 20 mg 07/25/20 09:00 07/27/20 08:49 Furosemide 20 Mg Tab PO 20 mg QAM MYLES Administration Insulin Glargine 10 units/ 0.1 mls @ 0 mls/hr 07/25/20 09:00 07/27/20 08:46 Miscellaneous Medication SC 0.1 mls QAM MYLES Administration Insulin Glargine 40 units/ 0.4 mls @ 0 mls/hr 07/25/20 21:00 07/26/20 20:53 Miscellaneous Medication SC 0.4 mls HS MYLES Administration Insulin Human Lispro 0 units 07/25/20 17:29 07/27/20 05:50 Humalog 300 Units/3 Ml Vial SC 6 unit .AGGRESSIVE SLIDING PRN Administration Aggressive [employer]al Scale Insulin Human Lispro 0 units 07/25/20 17:29 07/25/20 21:11 Humalog 300 Units/3 Ml Vial SC 2 unit .BEDTIME SLIDING SC PRN Administration Bedtime Correctional Scale Isosorbide Mononitrate 60 mg 07/27/20 09:00 07/27/20 08:47 Isosorbide Mononitrate Er 30 Mg Tab PO 60 mg QAM MYLES Administration Levothyroxine Sodium 75 mcg 07/25/20 06:00 07/27/20 05:42 Levothyroxine Sodium 75 Mcg Tab PO 75 mcg 0600 MYLES Administration Losartan Potassium 50 mg 07/24/20 21:00 07/27/20 08:48 Losartan 25 Mg Tab PO 50 mg BID MYLES Administration Miscellaneous Medication 2 gm 07/24/20 21:00 07/27/20 12:10 Icosapent Ethyl 1 Gm Capsule PO 2 gm BID MYLES Administration Nebivolol 20 mg 07/24/20 21:00 07/27/20 08:50 Nebivolol Hcl 5 Mg Tab PO 20 mg BID MYLES Administration Pantoprazole Sodium 40 mg 07/25/20 09:00 07/27/20 08:50 Pantoprazole 40 Mg Tab PO 40 mg DAILY MYLES Administration Potassium Chloride 20 meq 07/25/20 09:00 07/27/20 08:48 Potassium Chloride 20 Meq Tab PO 20 meq DAILY MYLES Administration Ranolazine 1,000 mg 07/24/20 21:00 07/27/20 08:48 Ranolazine 500 Mg Tab PO 1,000 mg BID MYLES Administration Hospitalist Exam Vitals: Vital Signs (12 hours) Temp Pulse Resp BP Pulse Ox 07/27/20 11:56 97.6 F 67 18 139/77 07/27/20 08:31 97.8 F 71 18 122/68 95 07/27/20 04:00 98.0 F 76 16 134/64 93 L 07/27/20 03:31 94 L Weight Weight 228 lb 14.4 oz General Appearance: awake alert Neck: no JVD Heart: RRR, no murmur Respiratory: CTAB Gastrointestinal: soft, normal bowel sounds Extremities: no edema Hosp A/P (1) Hypothyroid Code(s): E03.9 - HYPOTHYROIDISM, UNSPECIFIED Status: Acute Qualifiers: Hypothyroidism type: unspecified Qualified Code(s): E03.9 - Hypothyroidism, unspecified (2) Unstable angina Status: Acute (3) CAD (coronary artery disease) Code(s): I25.10 - ATHSCL HEART DISEASE OF [place] CORONARY ARTERY W/O ANG PCTRS Status: Chronic Qualifiers: Coronary Disease-Associated Artery/Lesion type: [place] artery [place] vs. transplanted heart: [place] heart Associated angina: with unstable angina Qualified Code(s): I25.110 - Atherosclerotic heart disease of [place] coronary artery with unstable angina pectoris (4) DM type 2 (diabetes mellitus, type 2) Status: Chronic Qualifiers: Diabetes mellitus terminal gauger insulin use: with jail use (5) HTN (hypertension) Code(s): I10 - ESSENTIAL (PRIMARY) HYPERTENSION Status: Chronic - Plan on asa,plavix, nitrates, nevbolic, ranexa suspect will require cardiac cath
--- NOTE | 2020-07-27 13:56 | PQF ---
CLINICAL DOCUMENTATION CLARIFICATION FORM: Dear Dr. Mi Date: 07/27/20 Please exercise your independent, professional judgment in responding to the clarification form. Clinical indicators are provided on the bottom of this form for your review. Please check appropriate box(es): HEART FAILURE: A. ACUITY [ ] Acute [ y ] Acute on Chronic [ ] Chronic B. TYPE: [ ] Systolic / HFrEF [ y ] Diastolic / HFpEF [ ] Combined Systolic / Diastolic [ ] Hypertensive Heart and Kidney disease [ ] Hypertensive Heart Disease [ ] Hypertensive Kidney Disease [ ] Other diagnosis [ ] Unable to determine In addition, please specify: Present on Admission (POA): [ ] Yes [ ] No [ ] Unable to determine For continuity of documentation, please document condition throughout progress notes and discharge summary. Thank You. To be completed by CDI/Coding staff for physician review: CLINICAL INDICATORS - SIGNS / SYMPTOMS / LABS / RESULTS AND LOCATION IN EMR H&P(AFFRAM): "LIKELY HEART FAILURE EXACERBATION" PN 07/24- ([place]): "ECHO: EF 65-70%. MILD TO MODERATE TR. DIASTOLIC DYSFUNCTION" RISKS FACTORS / RESULTS AND LOCATION IN EMR PULMONARY CONGESTION (H&P- AFFRAM) HTN (H&P) H/O CAD (H&P) H/O DIABETES (H&P) TREATMENTS / RESULTS AND LOCATION IN EMR ECHOCARDIOGRAM 07/24 LASIX (07/25-PRESENT) MARIA (07/24-PRESENT) CDS Signature: India Jackson, Phone #: [phone] Date: 07/27/20 This is a permanent part of the Medical Record [facility]
[2020-07-27] MEDS: Insulin Glargine 40 UNITS in Pre-Filled Syringe SC SCH (23:08)
[2020-07-28] MEDS: Levothyroxine Sodium 75 MCG TAB PO SCH (05:20)
[2020-07-28] MEDS: Nebivolol HCl 5 MG TAB PO SCH ×3 (05:20→20:58)
[2020-07-28] MEDS ORDERED: Ondansetron PF 4 MG/2 ML Vial IVP PRN (06:42)
[2020-07-28] MEDS ORDERED: Fentanyl 100 MCG/2 ML VIAL ONE (08:06)
[2020-07-28] MEDS ORDERED: Midazolam HCl 2 mg/2 ml Vial ONE (08:06)
[2020-07-28] MEDS ORDERED: Heparin 10,000 UNITS/ 10 ML VIAL ONE (08:41)
[2020-07-28] MEDS ORDERED: Clopidogrel Bisulfate 75 MG TAB ONE (08:43)
[2020-07-28] MEDS ORDERED: Clopidogrel Bisulfate 300 MG TAB ONE ×2 (08:45→08:59)
[2020-07-28] MEDS ORDERED: Nitroglycerin 100MG/250ML BOT 250 ML ONE (09:07)
[2020-07-28] MEDS ORDERED: Sodium Chloride 0.9% 500 ML IV SCH (09:30)
[2020-07-28] MEDS: Acetaminophen 500 MG TAB PO PRN (09:55)
[2020-07-28] MEDS: Icosapent Ethyl 1 GM CAPSULE PO SCH ×2 (10:39→20:56)
[2020-07-28] MEDS: Losartan 25 MG TAB PO SCH ×2 (10:39→20:59)
[2020-07-28] MEDS: Aspirin Chewable 81 MG TAB PO SCH (10:42)
[2020-07-28] MEDS: Clopidogrel Bisulfate 75 MG TAB PO SCH (10:42)
[2020-07-28] MEDS: Potassium Chloride 20 MEQ TAB PO SCH (10:43)
[2020-07-28] MEDS: Furosemide 20 MG TAB PO SCH (10:44)
[2020-07-28] MEDS ORDERED: Dextrose 5% in Water 1,000 ML IV PRN (12:49)
[2020-07-28] MEDS ORDERED: Dextrose 50% Abboject 50 ML SYRINGE SLOW IVP PRN (12:49)
--- NOTE | 2020-07-28 12:55 | PDOC.HOSPP ---
- Subjective Encounter Date: 07/28/20 Encounter Time: 12:54 Subjective: post cardiac cath with PCI - Objective Vital Signs & Weight: Vital Signs (12 hours) Temp Pulse Resp BP BP Pulse Ox 07/28/20 11:36 97.6 F 61 16 129/60 96 07/28/20 09:51 97.7 F 67 18 154/67 H 96 07/28/20 04:00 98.2 F 71 20 140/53 L 95 Weight Weight 228 lb 14.4 oz I&O: 07/27/20 07/28/20 07/29/20 06:59 06:59 06:59 Intake Total 1790 1829 Balance 1790 1829 Result Diagrams: 07/25/20 06:59 07/26/20 06:00 Additional Labs: Accuchecks 07/28/20 07/27/20 07/27/20 10:46 21:17 17:24 POC Glucose 272 H 188 H 300 H EKG Reviewed by me: Yes (post cath normal) Hospitalist ROS - Medication Medications: Active Medications Generic Name Dose Route Start Last Admin Trade Name Freq PRN Reason Stop Dose Admin Acetaminophen 1,000 mg 07/26/20 18:03 07/28/20 09:55 Acetaminophen 500 Mg Tab PO 1,000 mg Q8H PRN Administration Moderate to Severe Pain (6-10) Aspirin 81 mg 07/24/20 09:00 07/28/20 10:42 Aspirin Chewable 81 Mg Tab PO 81 mg DAILY MYLES Administration Clopidogrel Bisulfate 75 mg 07/25/20 09:00 07/28/20 10:42 Clopidogrel Bisulfate 75 Mg Tab PO 75 mg DAILY MYLES Administration Furosemide 20 mg 07/25/20 09:00 07/28/20 10:44 Furosemide 20 Mg Tab PO 20 mg QAM MYLES Administration Insulin Glargine 40 units/ 0.4 mls @ 0 mls/hr 07/25/20 21:00 07/27/20 23:08 Miscellaneous Medication SC Not Given HS MYLES Sodium Chloride 500 mls @ 100 mls/hr 07/28/20 09:30 07/28/20 10:44 Normal Saline 0.9% IV 07/28/20 14:29 Not Given .Q5H MYLES Isosorbide Mononitrate 60 mg 07/27/20 09:00 07/28/20 10:43 Isosorbide Mononitrate Er 30 Mg Tab PO 60 mg QAM MYLES Administration Levothyroxine Sodium 75 mcg 07/25/20 06:00 07/28/20 05:20 Levothyroxine Sodium 75 Mcg Tab PO 75 mcg 0600 MYLES Administration Losartan Potassium 50 mg 07/24/20 21:00 07/28/20 10:39 Losartan 25 Mg Tab PO 50 mg BID MYLES Administration Miscellaneous Medication 2 gm 07/24/20 21:00 07/28/20 10:39 Icosapent Ethyl 1 Gm Capsule PO 2 gm BID MYLES Administration Nebivolol 20 mg 07/24/20 21:00 07/28/20 05:20 Nebivolol Hcl 5 Mg Tab PO 20 mg BID MYLES Administration Ondansetron HCl 4 mg 07/28/20 06:42 07/28/20 07:03 Ondansetron Pf 4 Mg/2 Ml Vial IVP 4 mg Q6H PRN Administration Nausea/Vomiting Pantoprazole Sodium 40 mg 07/25/20 09:00 07/28/20 10:43 Pantoprazole 40 Mg Tab PO 40 mg DAILY MYLES Administration Potassium Chloride 20 meq 07/25/20 09:00 07/28/20 10:43 Potassium Chloride 20 Meq Tab PO 20 meq DAILY MYLES Administration Ranolazine 1,000 mg 07/24/20 21:00 07/28/20 10:41 Ranolazine 500 Mg Tab PO 1,000 mg BID MYLES Administration Sodium Chloride 10 ml 07/28/20 09:00 07/28/20 10:44 Flush - Normal Saline 10 Ml Syringe IVF Not Given Q12HR [facility] Hospitalist Exam Vitals: Vital Signs (12 hours) Temp Pulse Resp BP BP Pulse Ox 07/28/20 11:36 97.6 F 61 16 129/60 96 07/28/20 09:51 97.7 F 67 18 154/67 H 96 07/28/20 04:00 98.2 F 71 20 140/53 L 95 Weight Weight 228 lb 14.4 oz General Appearance: awake alert Neck: no JVD Heart: RRR Respiratory: CTAB, no wheezes Gastrointestinal: soft, non-distended, normal bowel sounds Extremities: 1+ LE edema Hosp A/P (1) Hypothyroid Code(s): E03.9 - HYPOTHYROIDISM, UNSPECIFIED Status: Acute Qualifiers: Hypothyroidism type: unspecified Qualified Code(s): E03.9 - Hypothyroidism, unspecified (2) Unstable angina Status: Acute (3) CAD (coronary artery disease) Code(s): I25.10 - ATHSCL HEART DISEASE OF [place] CORONARY ARTERY W/O ANG PCTRS Status: Chronic Qualifiers: Coronary Disease-Associated Artery/Lesion type: [place] artery [place] vs. transplanted heart: [place] heart Associated angina: with unstable angina Qualified Code(s): I25.110 - Atherosclerotic heart disease of [place] coronary a rtery with unstable angina pectoris (4) DM type 2 (diabetes mellitus, type 2) Status: Chronic Qualifiers: Diabetes mellitus alf insulin use: with intermodal dispatcher use Diabetes mellitus complication status: with kidney complications Diabetes mellitus complication detail: with chronic kidney disease (5) HTN (hypertension) Code(s): I10 - ESSENTIAL (PRIMARY) HYPERTENSION Status: Chronic Qualifiers: Hypertension type: essential hypertension Qualified Code(s): I10 - Essential (primary) hypertension - Plan post cath with PCI cont asa,plavix,nevbolic Glucose elevated > 200- start SS-moderate dose
[2020-07-28] MEDS: HumaLOG 300 UNITS/3 ML VIAL SC PRN ×2 (13:02→17:48)
[2020-07-28] MEDS: Insulin Glargine 40 UNITS in Pre-Filled Syringe SC SCH (20:56)
--- NOTE | 2020-07-28 22:18 | EKG ---
Test Reason : POST STENT - RCA Blood Pressure : / mmHG Vent. Rate : 064 BPM Atrial Rate : 064 BPM P-R Int : 116 ms QRS Dur : 076 ms QT Int : 418 ms P-R-T Axes : 076 023 050 degrees QTc Int : 431 ms Normal sinus rhythm Normal ECG When compared with ECG of 24-JUL-2020 01:12, No significant change was found Confirmed by Pavan MUNIZ ([id number]) on 07/28/2020 10:18:10 PM Referred By: EMMANUEL Confirmed By:Pavan MUNIZ
[2020-07-28] MEDS ORDERED: Rosuvastatin 10 MG TAB PO SCH (23:30)
[2020-07-29 05:55] LABS: #Basophils 0.1 thou/uL (0.0-0.2); #Eosinphils 0.2 thou/uL (0.0-0.7); #Lymphocytes 1.8 thou/uL (1.20-3.40); #Monocytes 0.4 thou/uL (0.11-0.59); #Neutrophils 3.4 thou/uL (1.40-6.50); %Basophils 1.3 % (0.0-1.0); %Lymphocytes 30.7 % (21.0-51.0); %Monocytes 7.4 % (0.0-10.0); %Neutrophils 57.7 % (42.0-75.0); Mean Corpuscular Hemoglobin 29.2 pg (27.0-31.0); Mean Corpuscular Volume 88.6 fL (78.0-98.0); Mean Platelet Volume 6.8 fL (7.4-10.4); Platelet Count 185 thou/uL (130-400); RBC Distribution Width 12.6 % (11.5-14.5); Red Blood Cell (RBC) Count 4.11 mill/uL (4.20-5.40); White Blood Cell (WBC) Count 5.9 thou/uL (4.8-10.8)
[2020-07-29] MEDS: Levothyroxine Sodium 75 MCG TAB PO SCH (06:00)
[2020-07-29] MEDS: HumaLOG 300 UNITS/3 ML VIAL SC PRN ×3 (06:04→17:43)
[2020-07-29 06:16] LABS: ALT (SGPT) 24 U/L (8-55); AST (SGOT) 16 U/L (5-34); Albumin 3.6 g/dL (3.4-4.8); Alkaline Phosphatase 68 U/L (40-110); Anion Gap 12 mmol/L (10-20); BUN (Urea Nitrogen) 22 mg/dL (9.8-20.1); Bilirubin, Total 0.3 mg/dL (0.2-1.2); Calc. Creatinine Clearance 73 mL/min (70-130); Calcium 8.8 mg/dL (7.8-10.44); Carbon Dioxide 28 mmol/L (23-31); Chloride 100 mmol/L (98-107); Globulin 2.7 g/dL (2.4-3.5); Glucose 266 mg/dL (83-110); Protein, Total 6.3 g/dL (5.8-8.1); Sodium 135 mmol/L (136-145)
[2020-07-29] MEDS: Icosapent Ethyl 1 GM CAPSULE PO SCH (08:57)
[2020-07-29] MEDS: Nebivolol HCl 5 MG TAB PO SCH (08:57)
[2020-07-29] MEDS: Furosemide 20 MG TAB PO SCH (08:58)
[2020-07-29] MEDS: Aspirin Chewable 81 MG TAB PO SCH (08:58)
[2020-07-29] MEDS: Clopidogrel Bisulfate 75 MG TAB PO SCH (08:58)
[2020-07-29] MEDS: Losartan 25 MG TAB PO SCH (08:58)
[2020-07-29] MEDS: Potassium Chloride 20 MEQ TAB PO SCH (08:59)
--- NOTE | 2020-07-29 10:04 | PDOC.HOSPP ---
- Subjective Encounter Date: 07/29/20 Encounter Time: 09:55 - Objective Vital Signs & Weight: Vital Signs (12 hours) Temp Pulse Resp BP BP Pulse Ox 07/29/20 08:00 98.1 F 63 18 121/57 L 90 L 07/29/20 03:44 98.3 F 69 14 150/65 H 94 L 07/29/20 00:00 98.5 F 60 16 136/65 93 L Weight Weight 228 lb 14.4 oz I&O: 07/28/20 07/29/20 07/30/20 06:59 06:59 06:59 Intake Total 1829 1040 Balance 1829 1040 Result Diagrams: 07/29/20 05:39 07/29/20 05:39 Additional Labs: Accuchecks 07/29/20 07/28/20 07/28/20 06:03 20:54 17:32 POC Glucose 248 H 265 H 239 H 07/28/20 10:46 POC Glucose 272 H Hospitalist ROS - Medication Medications: Active Medications Generic Name Dose Route Start Last Admin Trade Name Freq PRN Reason Stop Dose Admin Acetaminophen 1,000 mg 07/26/20 18:03 07/28/20 09:55 Acetaminophen 500 Mg Tab PO 1,000 mg Q8H PRN Administration Moderate to Severe Pain (6-10) Aspirin 81 mg 07/24/20 09:00 07/29/20 08:58 Aspirin Chewable 81 Mg Tab PO 81 mg DAILY MYLES Administration Clopidogrel Bisulfate 75 mg 07/25/20 09:00 07/29/20 08:58 Clopidogrel Bisulfate 75 Mg Tab PO 75 mg DAILY MYLES Administration Furosemide 20 mg 07/25/20 09:00 07/29/20 08:58 Furosemide 20 Mg Tab PO 20 mg QAM MYLES Administration Insulin Glargine 40 units/ 0.4 mls @ 0 mls/hr 07/25/20 21:00 07/28/20 20:56 Miscellaneous Medication SC 0.4 mls HS MYLES Administration Insulin Human Lispro 0 units 07/28/20 12:49 07/29/20 06:04 Humalog 300 Units/3 Ml Vial SC 4 unit .MODERATE SLIDING SC PRN Administration Moderate Correctional Scale Isosorbide Mononitrate 60 mg 07/27/20 09:00 07/29/20 08:59 Isosorbide Mononitrate Er 30 Mg Tab PO 60 mg QAM MYLES Administration Levothyroxine Sodium 75 mcg 07/25/20 06:00 07/29/20 06:00 Levothyroxine Sodium 75 Mcg Tab PO 75 mcg 0600 MYLES Administration Losartan Potassium 50 mg 07/24/20 21:00 07/29/20 08:58 Losartan 25 Mg Tab PO 50 mg BID MYLES Administration Miscellaneous Medication 2 gm 07/24/20 21:00 07/29/20 08:57 Icosapent Ethyl 1 Gm Capsule PO 2 gm BID MYLES Administration Nebivolol 20 mg 07/24/20 21:00 07/29/20 08:57 Nebivolol Hcl 5 Mg Tab PO 20 mg BID MYLES Administration Ondansetron HCl 4 mg 07/28/20 06:42 07/28/20 07:03 Ondansetron Pf 4 Mg/2 Ml Vial IVP 4 mg Q6H PRN Administration Nausea/Vomiting Pantoprazole Sodium 40 mg 07/25/20 09:00 07/29/20 08:58 Pantoprazole 40 Mg Tab PO 40 mg DAILY MYLES Administration Potassium Chloride 20 meq 07/25/20 09:00 07/29/20 08:59 Potassium Chloride 20 Meq Tab PO 20 meq DAILY MYLES Administration Ranolazine 1,000 mg 07/24/20 21:00 07/29/20 09:00 Ranolazine 500 Mg Tab PO 1,000 mg BID MYLES Administration Sodium Chloride 10 ml 07/28/20 09:00 07/29/20 08:59 Flush - Normal Saline 10 Ml Syringe IVF 10 ml Q12HR MYLES Administration Hospitalist Exam Vitals: Vital Signs (12 hours) Temp Pulse Resp BP BP Pulse Ox 07/29/20 08:00 98.1 F 63 18 121/57 L 90 L 07/29/20 03:44 98.3 F 69 14 150/65 H 94 L 07/29/20 00:00 98.5 F 60 16 136/65 93 L Weight Weight 228 lb 14.4 oz Hosp A/P (1) Hypothyroid Code(s): E03.9 - HYPOTHYROIDISM, UNSPECIFIED Status: Acute Qualifiers: Hypothyroidism type: unspecified Qualified Code(s): E03.9 - Hypothyroidism, unspecified (2) Unstable angina Status: Acute (3) CAD (coronary artery disease) Code(s): I25.10 - ATHSCL HEART DISEASE OF [place] CORONARY ARTERY W/O ANG PCTRS Status: Chronic Qualifiers: Coronary Disease-Associated Artery/Lesion type: [place] artery [place] vs. transplanted heart: [place] heart Associated angina: with unstable angina Qualified Code(s): I25.110 - Atherosclerotic heart disease of [place] coronary artery with unstable angina pectoris (4) DM type 2 (diabetes mellitus, type 2) Status: Chronic Qualifiers: Diabetes mellitus care home insulin use: with termination clerk use Diabetes mellitus complication status: with kidney complications Diabetes mellitus complication detail: with chronic kidney disease (5) HTN (hypertension) Code(s): I10 - ESSENTIAL (PRIMARY) HYPERTENSION Status: Chronic Qualifiers: Hypertension type: essential hypertension Qualified Code(s): I10 - Essential (primary) hypertension - Plan post cath with PCI cont asa,plavix,nevbolic Glucose elevated > 200- start SS-moderate dose
--- NOTE | 2020-07-29 14:55 | DIS ---
DATE OF ADMISSION: 07/24/2020 DATE OF DISCHARGE: 07/29/2020 PRIMARY CARE PROVIDER: Eulogio Beyer M.D. FINAL DIAGNOSES: 1. Unstable angina. 2. Coronary artery disease. 3. Type 2 diabetes. 4. Hypertension. 5. Hypothyroidism. DISCHARGE MEDICATIONS: 1. Plavix 75 mg a day. 2. Insulin glargine twice a day. 3. KCl 20 mEq a day. 4. Lasix 20 mg a day. 5. Insulin lispro 20 units subcu t.i.d. 6. Bystolic 20 mg p.o. b.i.d. 7. Levothyroxine 75 mcg a day. 8. Protonix 40 mg a day. 9. Ranexa 1000 mg p.o. twice a day. 10. Crestor 10 mg a day. 11. Cozaar 50 mg twice a day. 12. Imdur 60 mg a day. 13. Vascepa 2 g b.i.d. 14. Aspirin 81 mg a day. ALLERGIES: CODEINE, PENICILLINS, AND SULFA. CODE STATUS: Full. PENDING AT TIME OF DISCHARGE: Nothing. DIET: Diabetic. HOSPITAL COURSE: The patient admitted through the emergency room on 07/24/2020 with chest pain described as a tightness in her upper chest. Her initial studies demonstrated CBC normal. Common metabolic profile; creatinine 1.1, BUN 23. Lytes balanced. Blood sugar 242. Troponin 0.015, 0.015, 0.030. SARs was negative. She had a nuclear medicine stress test, which showed no reversibility. Dr. Thaddeus Delgado was consulted. She had an echocardiogram, EF 65%-70%. Because she continued to be symptomatic in the hospital, she eventually underwent cardiac cath. She was found to have a mid LAD 20% stenosis, proximal right coronary artery 70%. This was stented. Postoperatively, the patient has done well. No recurrence of her pain. Cardiac cath was done on 07/28/2020. She is being discharged to follow up with her PCP in 3 to 7 days. Follow up with Cardiology, Dr. Delgado and his recommendation. At time of discharge, vital signs are stable. Cardiorespiratory exam is normal and she is asymptomatic for chest tightness. Job ID: [id number]
[2020-07-29] MEDS: Acetaminophen 500 MG TAB PO PRN (16:19)
[2020-07-29 16:25] VITALS: BP 140/61; TEMP 97.6
[2020-07-29] MEDS ORDERED: Rosuvastatin 10 MG TAB PO SCH (21:00)
--- NOTE | 2020-07-30 20:56 | EKG ---
Test Reason : Blood Pressure : / mmHG Vent. Rate : 066 BPM Atrial Rate : 066 BPM P-R Int : 156 ms QRS Dur : 090 ms QT Int : 400 ms P-R-T Axes : 075 040 066 degrees QTc Int : 419 ms Normal sinus rhythm with sinus arrhythmia Normal ECG When compared with ECG of 28-JUL-2020 11:14, No significant change was found Confirmed by Pavan MUNIZ ([id number]) on 07/30/2020 8:56:02 PM Referred By: EMMANUEL Confirmed By:Pavan MUNIZ
== END 2020-07-29 19:25 | disposition home or self-care (01) | DRG 246 ==
LOC: ERS 01:01 → ERHOLD 03:11 → 3SE 13:58 → OBSVTOIN 17:15
PROVIDERS: ADMIT Student in an Organized Health Care Education/Training Program; ATTEND Internal Medicine
PROC: B2111ZZ Fluoroscopy of Multiple Coronary Arteries using Low Osmolar Contrast (ICD-10-PCS; principal; 2020-07-28)
PROC: 027034Z Dilation of Coronary Artery, One Artery with Drug-eluting Intraluminal Device, Percutaneous Approach (ICD-10-PCS; 2020-07-28)
PROC: B2151ZZ Fluoroscopy of Left Heart using Low Osmolar Contrast (ICD-10-PCS; 2020-07-28)
PROC: 4A023N7 Measurement of Cardiac Sampling and Pressure, Left Heart, Percutaneous Approach (ICD-10-PCS; 2020-07-28)
DX: I25.110 Atherosclerotic heart disease of native coronary artery with unstable angina pectoris (principal); I50.33 Acute on chronic diastolic (congestive) heart failure; E11.9 Type 2 diabetes mellitus without complications; F32.9 Major depressive disorder, single episode, unspecified; E66.9 Obesity, unspecified; I16.0 Hypertensive urgency; I11.0 Hypertensive heart disease with heart failure; K21.9 Gastro-esophageal reflux disease without esophagitis; E78.5 Hyperlipidemia, unspecified; Z20.822 Contact with and (suspected) exposure to COVID-19; Z88.0 Allergy status to penicillin; Z88.2 Allergy status to sulfonamides; Z88.6 Allergy status to analgesic agent; Z79.01 Long term (current) use of anticoagulants; Z79.890 Hormone replacement therapy; Z79.4 Long term (current) use of insulin; Z79.899 Other long term (current) drug therapy; Z90.49 Acquired absence of other specified parts of digestive tract; Z90.710 Acquired absence of both cervix and uterus; Z83.3 Family history of diabetes mellitus; Z82.49 Family history of ischemic heart disease and other diseases of the circulatory system; Z98.890 Other specified postprocedural states; Z68.39 Body mass index [BMI] 39.0-39.9, adult
CPT/HCPCS: 36415; 36416; 71045; 78452; 80048; 80053; 82550; 82553; 83880; 84443; 84484; 85025; 85347; 87635; 92928; 93005; 93010; 93017; 93306; 93458; 93798; 94760; 96372; 96374; 97139; 99152; 99153; A9500; C1760; C1769; C1874; C9600; G0378; J0153; J1644; J1650; J1815; J1940; J2250; J2405; J3010; U0003; U0005

== ENCOUNTER 2020-11-21 21:39 | Inpatient (IN) | payer MEDICARE, BC ==
[2020-11-21] MEDS ORDERED: Aspirin 325 MG TAB ONE (22:23)
[2020-11-21] MEDS ORDERED: Nitroglycerin 2% Ointment 1 INCH/1 GM Packet ONE (22:23)
[2020-11-21 22:31] LABS: #Basophils 0.1 thou/uL (0.0-0.2); #Eosinphils 0.1 thou/uL (0.0-0.7); #Lymphocytes 3.1 thou/uL (1.20-3.40); #Monocytes 0.7 thou/uL (0.11-0.59); #Neutrophils 5.7 thou/uL (1.40-6.50); %Basophils 0.5 % (0.0-1.0); %Eosinophils 1.3 % (0.0-10.0); %Lymphocytes 31.7 % (21.0-51.0); %Monocytes 7.2 % (0.0-10.0); %Neutrophils 59.2 % (42.0-75.0); Hemoglobin 13.8 g/dL (12.0-16.0); Mean Corpuscular HGB CONC 34.2 g/dL (32.0-36.0); Mean Corpuscular Hemoglobin 30.3 pg (27.0-31.0); Mean Corpuscular Volume 88.6 fL (78.0-98.0); Mean Platelet Volume 6.6 fL (7.4-10.4); Platelet Count 234 thou/uL (130-400); RBC Distribution Width 12.5 % (11.5-14.5); Red Blood Cell (RBC) Count 4.56 mill/uL (4.20-5.40); White Blood Cell (WBC) Count 9.7 thou/uL (4.8-10.8)
[2020-11-21 22:52] LABS: ALT (SGPT) 29 U/L (8-55); AST (SGOT) 25 U/L (5-34); Albumin 4.4 g/dL (3.4-4.8); Alkaline Phosphatase 75 U/L (40-110); Anion Gap 15 mmol/L (10-20); BUN (Urea Nitrogen) 21 mg/dL (9.8-20.1); Bilirubin, Total 0.4 mg/dL (0.2-1.2); Calc. Creatinine Clearance 0 mL/min (70-130); Calcium 9.7 mg/dL (7.8-10.44); Carbon Dioxide 29 mmol/L (23-31); Chloride 102 mmol/L (98-107); Globulin 3.2 g/dL (2.4-3.5); Glucose 93 mg/dL (83-110); Potassium 4.4 mmol/L (3.5-5.1); Protein, Total 7.6 g/dL (5.8-8.1); Sodium 142 mmol/L (136-145)
[2020-11-22 02:35] LABS: Troponin I Less than 0.010 ng/mL (< 0.028)
[2020-11-22 02:51] VITALS: BMI 35.2
[2020-11-22] MEDS ORDERED: Nitroglycerin 0.4 MG TAB (25 Tab Bottle) SL PRN (02:57)
[2020-11-22] MEDS ORDERED: Ondansetron PF 4 MG/2 ML Vial IVP PRN (02:57)
[2020-11-22] MEDS ORDERED: Acetaminophen 325 MG TAB PO PRN (02:57)
[2020-11-22] MEDS ORDERED: Ondansetron ODT 4 MG TAB PO PRN (02:57)
[2020-11-22 04:29] LABS: #Basophils 0.1 thou/uL (0.0-0.2); #Eosinphils 0.2 thou/uL (0.0-0.7); #Lymphocytes 2.1 thou/uL (1.20-3.40); #Monocytes 0.6 thou/uL (0.11-0.59); #Neutrophils 4.3 thou/uL (1.40-6.50); %Basophils 1.3 % (0.0-1.0); %Eosinophils 2.2 % (0.0-10.0); %Lymphocytes 28.8 % (21.0-51.0); %Monocytes 7.9 % (0.0-10.0); %Neutrophils 59.8 % (42.0-75.0); Hemoglobin 12.8 g/dL (12.0-16.0); Mean Corpuscular HGB CONC 32.6 g/dL (32.0-36.0); Mean Corpuscular Hemoglobin 29.2 pg (27.0-31.0); Mean Corpuscular Volume 89.7 fL (78.0-98.0); Mean Platelet Volume 6.5 fL (7.4-10.4); Platelet Count 228 thou/uL (130-400); RBC Distribution Width 12.6 % (11.5-14.5); Red Blood Cell (RBC) Count 4.39 mill/uL (4.20-5.40); White Blood Cell (WBC) Count 7.2 thou/uL (4.8-10.8)
[2020-11-22] MEDS ORDERED: Dextrose 50% Abboject 50 ML SYRINGE SLOW IVP PRN (04:40)
[2020-11-22] MEDS ORDERED: HumaLOG 300 UNITS/3 ML VIAL SC PRN (04:40)
[2020-11-22] MEDS ORDERED: Dextrose 5% in Water 1,000 ML IV PRN (04:40)
[2020-11-22 04:50] LABS: Anion Gap 15 mmol/L (10-20); BUN (Urea Nitrogen) 21 mg/dL (9.8-20.1); Calc. Creatinine Clearance 78 mL/min (70-130); Calcium 9.1 mg/dL (7.8-10.44); Carbon Dioxide 26 mmol/L (23-31); Chloride 103 mmol/L (98-107); Glucose 215 mg/dL (83-110); Potassium 4.2 mmol/L (3.5-5.1); Sodium 140 mmol/L (136-145)
[2020-11-22] MEDS ORDERED: Labetalol HCl 100 MG/20 ML VIAL SLOW IVP PRN (04:52)
[2020-11-22] MEDS ORDERED: hydrALAZINE 20 MG/ML VIAL SLOW IVP PRN (04:52)
[2020-11-22 04:56] LABS: Troponin I Less than 0.010 ng/mL (< 0.028)
[2020-11-22] MEDS ORDERED: Aspirin Chewable 81 MG TAB ONE (10:41)
[2020-11-22] MEDS ORDERED: Clopidogrel Bisulfate 75 MG TAB ONE (10:41)
[2020-11-22] MEDS: Aspirin Chewable 81 MG TAB PO SCH (10:43)
[2020-11-22] MEDS: Clopidogrel Bisulfate 75 MG TAB PO SCH (10:44)
[2020-11-22] MEDS: HumaLOG 300 UNITS/3 ML VIAL SC PRN (17:33)
[2020-11-22] MEDS: Icosapent Ethyl 1 GM CAPSULE PO SCH (20:44)
[2020-11-22] MEDS: Losartan 25 MG TAB PO SCH (20:45)
[2020-11-22] MEDS: Nebivolol HCl 5 MG TAB PO SCH (20:45)
[2020-11-22] MEDS ORDERED: Rosuvastatin 10 MG TAB PO SCH (21:00)
[2020-11-23] MEDS: HumaLOG 300 UNITS/3 ML VIAL SC PRN ×2 (07:03→11:40)
[2020-11-23] MEDS: Clopidogrel Bisulfate 75 MG TAB PO SCH (08:02)
[2020-11-23] MEDS: Icosapent Ethyl 1 GM CAPSULE PO SCH (08:02)
[2020-11-23] MEDS: Nebivolol HCl 5 MG TAB PO SCH (08:02)
[2020-11-23] MEDS: Losartan 25 MG TAB PO SCH (08:02)
[2020-11-23] MEDS: Aspirin Chewable 81 MG TAB PO SCH (08:03)
[2020-11-23] MEDS ORDERED: Levothyroxine Sodium 75 MCG TAB PO SCH (09:00)
[2020-11-23] MEDS ORDERED: Furosemide 20 MG TAB PO SCH (09:00)
[2020-11-23] MEDS ORDERED: ALPRAZolam 0.25 MG TAB PO SCH ×2 (11:45→21:00)
[2020-11-23 11:49] VITALS: BP 149/66; TEMP 97.7
== END 2020-11-23 14:48 | disposition home or self-care (01) | DRG 305 ==
LOC: ERS 21:39 → ERHOLD 11-22 01:10 → 2NO 11-22 15:22
PROVIDERS: ADMIT Student in an Organized Health Care Education/Training Program; ATTEND Internal Medicine
DX: I16.0 Hypertensive urgency (principal); E11.9 Type 2 diabetes mellitus without complications; I10 Essential (primary) hypertension; E78.00 Pure hypercholesterolemia, unspecified; F32.9 Major depressive disorder, single episode, unspecified; E78.5 Hyperlipidemia, unspecified; I45.6 Pre-excitation syndrome; I25.10 Atherosclerotic heart disease of native coronary artery without angina pectoris; E03.9 Hypothyroidism, unspecified; K21.9 Gastro-esophageal reflux disease without esophagitis; E66.01 Morbid (severe) obesity due to excess calories; Z90.710 Acquired absence of both cervix and uterus; Z90.49 Acquired absence of other specified parts of digestive tract; Z88.5 Allergy status to narcotic agent; Z88.0 Allergy status to penicillin; Z88.2 Allergy status to sulfonamides; Z79.82 Long term (current) use of aspirin; Z79.4 Long term (current) use of insulin; Z79.899 Other long term (current) drug therapy; Z68.35 Body mass index [BMI] 35.0-35.9, adult
CPT/HCPCS: 36415; 36416; 71045; 80048; 80053; 84484; 85025; 93005; 94760; J1815

== ENCOUNTER 2021-07-18 15:43 | Inpatient (IN) | payer MEDICARE, BC ==
[2021-07-18 16:16] LABS: #Basophils 0.1 thou/uL (0.0-0.2); #Eosinphils 0.1 thou/uL (0.0-0.7); #Lymphocytes 2.3 thou/uL (1.20-3.40); #Monocytes 0.6 thou/uL (0.11-0.59); #Neutrophils 4.7 thou/uL (1.40-6.50); %Basophils 0.8 % (0.0-1.0); %Eosinophils 1.4 % (0.0-10.0); %Monocytes 8.2 % (0.0-10.0); %Neutrophils 60.7 % (42.0-75.0); Hemoglobin 13.6 g/dL (12.0-16.0); Mean Corpuscular HGB CONC 34.5 g/dL (32.0-36.0); Mean Corpuscular Hemoglobin 30.8 pg (27.0-31.0); Mean Corpuscular Volume 89.3 fL (78.0-98.0); Mean Platelet Volume 6.7 fL (7.4-10.4); Platelet Count 209 thou/uL (130-400); RBC Distribution Width 12.7 % (11.5-14.5); White Blood Cell (WBC) Count 7.8 thou/uL (4.8-10.8)
[2021-07-18 16:42] LABS: ALT (SGPT) 27 U/L (8-55); AST (SGOT) 33 U/L (5-34); Albumin 4.1 g/dL (3.4-4.8); Alkaline Phosphatase 68 U/L (40-110); Anion Gap 21 mmol/L (10-20); BUN (Urea Nitrogen) 21 mg/dL (9.8-20.1); Bilirubin, Total 0.5 mg/dL (0.2-1.2); Calc. Creatinine Clearance 0 mL/min (70-130); Calcium 9.1 mg/dL (7.8-10.44); Carbon Dioxide 18 mmol/L (23-31); Chloride 104 mmol/L (98-107); Globulin 3.1 g/dL (2.4-3.5); Glucose 174 mg/dL (83-110); Potassium 4.7 mmol/L (3.5-5.1); Protein, Total 7.2 g/dL (5.8-8.1); Sodium 138 mmol/L (136-145)
[2021-07-18] MEDS ORDERED: Aspirin Chewable 81 MG TAB ONE (16:51)
[2021-07-18] MEDS ORDERED: Acetaminophen 650 MG Suppository PR PRN (20:37)
[2021-07-18] MEDS ORDERED: Acetaminophen 325 MG TAB PO PRN (20:37)
[2021-07-18] MEDS ORDERED: Ondansetron ODT 4 MG TAB PO PRN (20:37)
[2021-07-18] MEDS ORDERED: Ondansetron PF 4 MG/2 ML Vial IVP PRN (20:37)
[2021-07-18] MEDS ORDERED: HumaLOG 300 UNITS/3 ML VIAL SC PRN (20:37)
[2021-07-18] MEDS ORDERED: Dextrose 5% in Water 1,000 ML IV PRN (20:37)
[2021-07-18] MEDS ORDERED: Dextrose 50% Abboject 50 ML SYRINGE SLOW IVP PRN (20:37)
[2021-07-18] MEDS ORDERED: Nitroglycerin 0.4 MG TAB (25 Tab Bottle) SL PRN (20:37)
[2021-07-18 20:40] LABS: Troponin I Less than 0.010 ng/mL (< 0.028)
[2021-07-18] MEDS ORDERED: Clopidogrel Bisulfate 75 MG TAB PO SCH (20:45)
[2021-07-18 21:45] VITALS: BMI 38.9
[2021-07-18] MEDS: Rosuvastatin 10 MG TAB PO SCH (21:56)
[2021-07-18] MEDS: Sodium Chloride 0.9% 1,000 ML IV SCH (21:56)
[2021-07-18 22:28] LABS: SARS-CoV-2 NAA Rapid Test DETECTED (NotDetected)
[2021-07-18 22:37] LABS: Troponin I Less than 0.010 ng/mL (< 0.028)
[2021-07-18] MEDS ORDERED: cloNIDine 0.1 MG TAB PO SCH (22:45)
[2021-07-18] MEDS: HumaLOG 300 UNITS/3 ML VIAL SC PRN (23:04)
[2021-07-19 01:46] LABS: Bacteria/HPF 4+ HPF (None Seen); Bilirubin Negative (Negative); Blood, Urine Negative (Negative); Clarity Clear (Clear); Glucose, Urine (Dipstick) 300 mg/dL (Negative); Ketone, Urine Negative (Negative); Leukocyte Negative Leu/uL (Negative); Nitrite 2+ (Negative); Protein, Urine (Dipstick) Negative (Neg-Trace); RBC/HPF 0-3 HPF (0-3); Specific Gravity, Urine 1.021 (1.002-1.036); Urobilinogen Normal mg/dL (Less than 2)
[2021-07-19 05:16] LABS: #Eosinphils 0.2 thou/uL (0.0-0.7); #Lymphocytes 2.2 thou/uL (1.20-3.40); #Monocytes 0.5 thou/uL (0.11-0.59); #Neutrophils 2.4 thou/uL (1.40-6.50); %Basophils 0.7 % (0.0-1.0); %Lymphocytes 41.7 % (21.0-51.0); %Monocytes 9.5 % (0.0-10.0); %Neutrophils 45.2 % (42.0-75.0); Hemoglobin 12.1 g/dL (12.0-16.0); Mean Corpuscular Volume 90.9 fL (78.0-98.0); Mean Platelet Volume 6.6 fL (7.4-10.4); Platelet Count 192 thou/uL (130-400); RBC Distribution Width 12.6 % (11.5-14.5); Red Blood Cell (RBC) Count 4.03 mill/uL (4.20-5.40); White Blood Cell (WBC) Count 5.3 thou/uL (4.8-10.8)
[2021-07-19 05:37] LABS: Anion Gap 21 mmol/L (10-20); BUN (Urea Nitrogen) 20 mg/dL (9.8-20.1); Calc. Creatinine Clearance 83 mL/min (70-130); Calcium 8.6 mg/dL (7.8-10.44); Carbon Dioxide 15 mmol/L (23-31); Chloride 105 mmol/L (98-107); Glucose 289 mg/dL (83-110); Potassium 4.2 mmol/L (3.5-5.1); Sodium 137 mmol/L (136-145)
[2021-07-19] MEDS ORDERED: FLU VACC QS2021-22(65YR UP)/PF 240 MCG/0.7 ML SYRINGE IM ONE (09:00)
[2021-07-19] MEDS ORDERED: Enoxaparin Sodium 40 MG/0.4 ML SYRINGE SC SCH (09:00)
[2021-07-19] MEDS ORDERED: cloNIDine 0.1 MG TAB PO SCH (09:00)
[2021-07-19] MEDS: Aspirin Chewable 81 MG TAB PO SCH ×2 (09:59→10:12)
[2021-07-19] MEDS: cloNIDine 0.1 MG TAB PO SCH ×2 (10:00→21:31)
[2021-07-19] MEDS: Clopidogrel Bisulfate 75 MG TAB PO SCH ×2 (10:01→10:15)
[2021-07-19] MEDS ORDERED: Fentanyl 100 MCG/2 ML VIAL ONE (12:52)
[2021-07-19] MEDS ORDERED: Midazolam HCl 2 mg/2 ml Vial ONE (12:52)
[2021-07-19] MEDS ORDERED: Heparin 10,000 UNITS/ 10 ML VIAL ONE (12:53)
[2021-07-19] MEDS: Sodium Chloride 0.9% 1,000 ML IV SCH (13:01)
[2021-07-19] MEDS ORDERED: hydrALAZINE 20 MG/ML VIAL ONE (13:52)
[2021-07-19] MEDS ORDERED: Sodium Chloride 0.9% 200 ML IV PRN (15:42)
[2021-07-19] MEDS ORDERED: Sodium Chloride 0.9% 500 ML IV SCH (15:45)
[2021-07-19] MEDS ORDERED: HumaLOG 300 UNITS/3 ML VIAL SC PRN (20:48)
[2021-07-19] MEDS ORDERED: ALPRAZolam 0.25 MG TAB PO SCH (21:00)
[2021-07-19] MEDS: Rosuvastatin 10 MG TAB PO SCH (21:31)
[2021-07-19] MEDS: ALPRAZolam 0.25 MG TAB PO SCH (21:31)
[2021-07-19] MEDS: HumaLOG 300 UNITS/3 ML VIAL SC PRN (21:38)
[2021-07-20 08:44] VITALS: TEMP 97.5
[2021-07-20] MEDS ORDERED: Bisoprolol Fumarate 5 MG TAB PO SCH ×2 (09:00)
[2021-07-20] MEDS: ALPRAZolam 0.25 MG TAB PO SCH (11:05)
[2021-07-20] MEDS: Clopidogrel Bisulfate 75 MG TAB PO SCH (11:06)
[2021-07-20] MEDS: cloNIDine 0.1 MG TAB PO SCH (11:06)
[2021-07-20] MEDS: Aspirin Chewable 81 MG TAB PO SCH (11:07)
[2021-07-20 12:12] VITALS: BP 143/65
== END 2021-07-20 14:56 | disposition home or self-care (01) | DRG 286 ==
LOC: ERS 15:43 → 2SW 18:27 → OBSVTOIN 07-20 09:59
PROVIDERS: ADMIT Family Medicine; ATTEND Internal Medicine
PROC: 4A023N7 Measurement of Cardiac Sampling and Pressure, Left Heart, Percutaneous Approach (ICD-10-PCS; principal; 2021-07-19)
PROC: B2111ZZ Fluoroscopy of Multiple Coronary Arteries using Low Osmolar Contrast (ICD-10-PCS; 2021-07-19)
PROC: B2151ZZ Fluoroscopy of Left Heart using Low Osmolar Contrast (ICD-10-PCS; 2021-07-19)
PROC: 8E0ZXY6 Isolation (ICD-10-PCS; 2021-07-20)
DX: I25.110 Atherosclerotic heart disease of native coronary artery with unstable angina pectoris (principal); U07.1 COVID-19; I13.0 Hypertensive heart and chronic kidney disease with heart failure and stage 1 through stage 4 chronic kidney disease, or unspecified chronic kidney disease; I50.32 Chronic diastolic (congestive) heart failure; E87.2 Acidosis; E11.22 Type 2 diabetes mellitus with diabetic chronic kidney disease; N18.30 Chronic kidney disease, stage 3 unspecified; E78.5 Hyperlipidemia, unspecified; K21.9 Gastro-esophageal reflux disease without esophagitis; F41.9 Anxiety disorder, unspecified; E66.01 Morbid (severe) obesity due to excess calories; E78.00 Pure hypercholesterolemia, unspecified; Z88.6 Allergy status to analgesic agent; Z88.0 Allergy status to penicillin; Z88.2 Allergy status to sulfonamides; Z95.5 Presence of coronary angioplasty implant and graft; Z79.899 Other long term (current) drug therapy; Z79.4 Long term (current) use of insulin; Z79.02 Long term (current) use of antithrombotics/antiplatelets; Z79.890 Hormone replacement therapy; Z79.82 Long term (current) use of aspirin; Z79.891 Long term (current) use of opiate analgesic; Z90.710 Acquired absence of both cervix and uterus; Z90.49 Acquired absence of other specified parts of digestive tract; Z68.39 Body mass index [BMI] 39.0-39.9, adult
CPT/HCPCS: 36415; 36416; 71045; 80048; 80053; 81001; 83880; 84484; 85025; 93005; 93458; 94760; 99152; G0378; J0360; J1644; J1815; J2250; J3010; J7030; J7050; U0002

== ENCOUNTER 2023-06-28 22:59 | Observation (INO) | payer BC, MEDICARE ==
[2023-06-29 00:18] LABS: #Monocytes 0.1 thou/uL (0.11-0.59); #Neutrophils 6.9 thou/uL (1.40-6.50); %Basophils 0.5 % (0.0-1.0); %Eosinophils 0.1 % (0.0-10.0); %Lymphocytes 14.6 % (21.0-51.0); %Monocytes 1.7 % (0.0-10.0); %Neutrophils 81.7 % (42.0-75.0); Actual Bicarbonate (HCO3v) 19.9 mEq/L (22-28); Base Excess -4.7 mEq/L (-2.0 to +3.0); Calcium, Ionized (venous) 1.11 mmol/L (1.16-1.32); Chloride (VBG) 99 mmol/L (98-106); Hematocrit 39.4 % (36.0-47.0); Hematocrit-VBG 41 % (36.0-47.0); Hemoglobin 12.9 g/dL (12.0-16.0); Hemoglobin (Hb) 13.9 g/dL (11.7-16.1); Mean Corpuscular HGB CONC 32.7 g/dL (32.0-36.0); Mean Corpuscular Hemoglobin 29.1 pg (27.0-31.0); Mean Corpuscular Volume 88.9 fl (78.0-98.0); Mean Platelet Volume 9.4 fL (7.4-10.4); Platelet Count 223 10x3/uL (130-400); Potassium (VBG) 5.59 mmol/L (3.70-5.30); RBC Distribution Width 13.2 % (11.5-14.5); Red Blood Cell (RBC) Count 4.43 mill/uL (4.20-5.40); Sodium 133 mmol/L (133-146); White Blood Cell (WBC) Count 8.4 10x3/uL (4.8-10.8); pH (venous) 7.366 (7.32-7.43)
[2023-06-29 00:41] LABS: ALT (SGPT) 24 U/L (8-55); AST (SGOT) 20 U/L (5-34); Alkaline Phosphatase 76 U/L (40-110); Anion Gap 19 mmol/L (10-20); BUN (Urea Nitrogen) 38 mg/dL (9.8-20.1); Bilirubin, Total 0.2 mg/dL (0.2-1.2); Calc. Creatinine Clearance 0 mL/min (70-130); Calcium 9.3 mg/dL (7.8-10.44); Carbon Dioxide 20 mmol/L (23-31); Chloride 99 mmol/L (98-107); Estimated GFR 28; Globulin 3.6 g/dL (2.4-3.5); Magnesium 1.9 mg/dL (1.6-2.6); Potassium 5.5 mmol/L (3.5-5.1); Protein, Total 7.6 g/dL (5.8-8.1); Sodium 132 mmol/L (136-145)
[2023-06-29 00:44] LABS: Troponin I Less than 0.010 ng/mL (< 0.028)
[2023-06-29 00:45] LABS: Critical Call Chemistry NUR.MB20@0045; Glucose 483 mg/dL (83-110)
[2023-06-29 02:02] LABS: Bacteria/HPF 1+ HPF (None Seen); Bilirubin Negative (Negative); Blood, Urine Negative (Negative); CAUTI Indications for Culture Dysuria,urgency,freq; Clarity Clear (Clear); Glucose, Urine (Dipstick) Greater than 1000 mg/dL (Negative); Ketone, Urine Negative (Negative); Leukocyte Negative Leu/uL (Negative); Nitrite 2+ (Negative); Protein, Urine (Dipstick) Negative (Neg-Trace); RBC/HPF 0-3 HPF (0-3); Specific Gravity, Urine 1.026 (1.002-1.036); Squamous Epithelial 0-3 HPF (0-3); Urobilinogen Normal mg/dL (Less than 2); Yeast-Budding 2+ HPF (None Seen)
[2023-06-29 02:03] LABS: Urine Culture Reflex No No
[2023-06-29] MEDS ORDERED: cloNIDine 0.1 MG TAB ONE (03:28)
[2023-06-29 03:52] LABS: Actual Bicarbonate (HCO3v) 21.8 mEq/L (22-28); Analyzer IN Cardio ER; Base Excess -2.7 mEq/L (-2.0 to +3.0); Calcium, Ionized (venous) 1.13 mmol/L (1.16-1.32); Chloride (VBG) 101 mmol/L (98-106); Hematocrit-VBG 41 % (36.0-47.0); Hemoglobin (Hb) 14.1 g/dL (11.7-16.1); Potassium (VBG) 5.65 mmol/L (3.70-5.30); Sodium 134 mmol/L (133-146); pH (venous) 7.389 (7.32-7.43)
[2023-06-29 03:56] LABS: #Monocytes 0.4 thou/uL (0.11-0.59); #Neutrophils 7.4 thou/uL (1.40-6.50); %Basophils 0.4 % (0.0-1.0); %Lymphocytes 17.1 % (21.0-51.0); %Monocytes 3.9 % (0.0-10.0); %Neutrophils 77.5 % (42.0-75.0); Hematocrit 40.2 % (36.0-47.0); Hemoglobin 13.4 g/dL (12.0-16.0); Mean Corpuscular HGB CONC 33.3 g/dL (32.0-36.0); Mean Corpuscular Hemoglobin 29.5 pg (27.0-31.0); Mean Corpuscular Volume 88.4 fl (78.0-98.0); Mean Platelet Volume 9.1 fL (7.4-10.4); Platelet Count 228 10x3/uL (130-400); RBC Distribution Width 13.2 % (11.5-14.5); Red Blood Cell (RBC) Count 4.55 mill/uL (4.20-5.40); White Blood Cell (WBC) Count 9.5 10x3/uL (4.8-10.8)
[2023-06-29] MEDS ORDERED: Albuterol 2.5 MG (3 mL) NEB ONE (04:06)
[2023-06-29 04:22] LABS: ALT (SGPT) 24 U/L (8-55); AST (SGOT) 18 U/L (5-34); Albumin 4.1 g/dL (3.4-4.8); Alkaline Phosphatase 75 U/L (40-110); Anion Gap 16 mmol/L (10-20); BUN (Urea Nitrogen) 35 mg/dL (9.8-20.1); Bilirubin, Total 0.3 mg/dL (0.2-1.2); Calc. Creatinine Clearance 0 mL/min (70-130); Calcium 9.6 mg/dL (7.8-10.44); Carbon Dioxide 22 mmol/L (23-31); Chloride 102 mmol/L (98-107); Estimated GFR 35; Globulin 3.6 g/dL (2.4-3.5); Glucose 326 mg/dL (83-110); Magnesium 1.9 mg/dL (1.6-2.6); Potassium 5.7 mmol/L (3.5-5.1); Protein, Total 7.7 g/dL (5.8-8.1); Sodium 134 mmol/L (136-145)
[2023-06-29] MEDS ORDERED: HumaLOG 300 UNITS/3 ML VIAL ONE (04:23)
[2023-06-29 04:26] LABS: Troponin I Less than 0.010 ng/mL (< 0.028)
[2023-06-29] MEDS ORDERED: Sodium Chloride 0.9% 1,000 ML IV SCH ×2 (06:00→08:23)
[2023-06-29] MEDS ORDERED: CALCIUM GLUC 1 GM (50 ML) BAG ONE (06:12)
[2023-06-29] MEDS ORDERED: Insulin Regular 300 UNITS/3 ML VIAL ONE (06:17)
[2023-06-29] MEDS ORDERED: Nitroglycerin 0.4 MG TAB (25 Tab Bottle) ONE (06:27)
[2023-06-29 06:41] VITALS: BMI 37.3
[2023-06-29] MEDS ORDERED: LOKELMA 10 GM PACKET PO SCH (06:45)
[2023-06-29 07:26] LABS: Troponin I Less than 0.010 ng/mL (< 0.028)
[2023-06-29 07:26] LABS: Creatinine, Urine 47.48 mg/dL (47-110); Protein, Urine Random Quant Less than 10 mg/dL (1-14); Sodium, Urine 47 mmol/L (Not Available); Urea Nitrogen, Random Urine 415 mg/dl
[2023-06-29] MEDS ORDERED: Ondansetron ODT 4 MG TAB PO PRN (08:21)
[2023-06-29] MEDS ORDERED: Ondansetron PF 4 MG/2 ML Vial IVP PRN (08:21)
[2023-06-29] MEDS ORDERED: Nitroglycerin 0.4 MG TAB (25 Tab Bottle) SL PRN (08:24)
[2023-06-29] MEDS ORDERED: AZILSARTAN MEDOXOMIL 80 MG PO PRN (08:39)
[2023-06-29] MEDS ORDERED: Acetaminophen 325 MG TAB PO PRN (08:43)
[2023-06-29] MEDS ORDERED: Aspirin Chewable 81 MG TAB PO SCH (09:00)
[2023-06-29] MEDS ORDERED: cloNIDine 0.1 MG TAB PO SCH (09:00)
[2023-06-29] MEDS ORDERED: Non-Formulary Item 1 EACH (Insulin Glargine,Hum.Rec.Anlog [Lantus Solostar] 100 UNIT/ML P SC SCH (09:00)
[2023-06-29] MEDS ORDERED: Amlodipine 5 MG TAB PO SCH (09:00)
[2023-06-29] MEDS ORDERED: Empagliflozin 25 MG TAB PO SCH (10:30)
[2023-06-29 10:36] LABS: Troponin I Less than 0.010 ng/mL (< 0.028)
[2023-06-29] MEDS: Nebivolol HCl 5 MG TAB PO SCH (10:52)
[2023-06-29] MEDS: Ranolazine 500 MG ER.TAB PO SCH ×2 (10:53→21:07)
[2023-06-29] MEDS: Nitroglycerin 2% Ointment 1 INCH/1 GM Packet TOP SCH ×2 (10:53→21:08)
[2023-06-29] MEDS: Acetaminophen 325 MG TAB PO PRN (10:53)
[2023-06-29] MEDS ORDERED: Insulin Glargine 30 UNITS/0.3 ML VIAL SC SCH (11:15)
[2023-06-29] MEDS ORDERED: Dextrose 5% in Water 1,000 ML IV PRN (11:15)
[2023-06-29] MEDS ORDERED: Dextrose 50% Abboject 50 ML SYRINGE IVP PRN (11:15)
[2023-06-29] MEDS ORDERED: Glucagon 1 MG/ML KIT IM PRN (11:15)
[2023-06-29] MEDS ORDERED: NIFEdipine XL 60 MG ER.TAB PO SCH (12:00)
[2023-06-29] MEDS ORDERED: HumaLOG 300 UNITS/3 ML VIAL SC PRN (12:45)
[2023-06-29] MEDS: HumaLOG 300 UNITS/3 ML VIAL SC PRN ×2 (13:05→18:46)
[2023-06-29 13:06] LABS: Hemoglobin A1c 9.3 % (4.0-6.0)
[2023-06-29 15:49] LABS: Anion Gap 12 mmol/L (10-20); BUN (Urea Nitrogen) 33 mg/dL (9.8-20.1); Calc. Creatinine Clearance 56 mL/min (70-130); Calcium 8.8 mg/dL (7.8-10.44); Carbon Dioxide 23 mmol/L (23-31); Chloride 104 mmol/L (98-107); Estimated GFR 42; Glucose 294 mg/dL (83-110); Potassium 4.6 mmol/L (3.5-5.1); Sodium 134 mmol/L (136-145)
[2023-06-29] MEDS ORDERED: Clopidogrel Bisulfate 75 MG TAB PO SCH (21:00)
[2023-06-29] MEDS ORDERED: Rosuvastatin 10 MG TAB PO SCH (21:00)
[2023-06-29] MEDS: NIFEdipine XL 30 MG ER.TAB PO SCH (21:06)
[2023-06-29] MEDS: Icosapent Ethyl 1 GM CAPSULE PO SCH (21:07)
[2023-06-29] MEDS: Insulin Glargine 30 UNITS/0.3 ML VIAL SC SCH (21:09)
[2023-06-30 05:35] LABS: #Basophils 0.1 thou/uL (0.0-0.2); #Eosinphils 0.2 thou/uL (0.0-0.7); #Monocytes 0.6 thou/uL (0.11-0.59); #Neutrophils 4.8 thou/uL (1.40-6.50); %Basophils 1.1 % (0.0-1.0); %Eosinophils 2.1 % (0.0-10.0); %Lymphocytes 30.2 % (21.0-51.0); %Monocytes 7.4 % (0.0-10.0); %Neutrophils 58.1 % (42.0-75.0); Hematocrit 40.7 % (36.0-47.0); Mean Corpuscular HGB CONC 31.9 g/dL (32.0-36.0); Mean Corpuscular Hemoglobin 29.3 pg (27.0-31.0); Mean Corpuscular Volume 91.7 fl (78.0-98.0); Mean Platelet Volume 9.1 fL (7.4-10.4); Platelet Count 191 10x3/uL (130-400); RBC Distribution Width 13.6 % (11.5-14.5); Red Blood Cell (RBC) Count 4.44 mill/uL (4.20-5.40); White Blood Cell (WBC) Count 8.2 10x3/uL (4.8-10.8)
[2023-06-30] MEDS ORDERED: Levothyroxine Sodium 75 MCG TAB PO SCH (06:00)
[2023-06-30 06:28] LABS: Anion Gap 16 mmol/L (10-20); BUN (Urea Nitrogen) 33 mg/dL (9.8-20.1); Calc. Creatinine Clearance 65 mL/min (70-130); Calcium 9.6 mg/dL (7.8-10.44); Carbon Dioxide 20 mmol/L (23-31); Chloride 107 mmol/L (98-107); Estimated GFR 51; Glucose 72 mg/dL (83-110); Potassium 4.4 mmol/L (3.5-5.1); Sodium 139 mmol/L (136-145)
[2023-06-30 08:35] VITALS: TEMP 98.4
[2023-06-30] MEDS ORDERED: Sodium Bicarbonate Tab 325 MG TAB PO SCH (09:00)
[2023-06-30] MEDS ORDERED: Empagliflozin 25 MG TAB PO SCH (09:00)
[2023-06-30] MEDS ORDERED: EDARBI 80 MG PO SCH (09:00)
[2023-06-30] MEDS: Ranolazine 500 MG ER.TAB PO SCH (09:03)
[2023-06-30] MEDS: Icosapent Ethyl 1 GM CAPSULE PO SCH (09:03)
[2023-06-30] MEDS: NIFEdipine XL 30 MG ER.TAB PO SCH (09:03)
[2023-06-30] MEDS: Nebivolol HCl 5 MG TAB PO SCH (09:04)
[2023-06-30] MEDS: Insulin Glargine 30 UNITS/0.3 ML VIAL SC SCH (09:05)
[2023-06-30] MEDS: Nitroglycerin 2% Ointment 1 INCH/1 GM Packet TOP SCH (09:05)
[2023-06-30] MEDS: Acetaminophen 325 MG TAB PO PRN (10:58)
[2023-06-30 11:13] VITALS: BP 144/64
[2023-06-30] MEDS: HumaLOG 300 UNITS/3 ML VIAL SC PRN (13:04)
== END 2023-06-30 17:30 | disposition home or self-care (01) ==
LOC: ERS 22:59 → ERHOLD 06-29 04:51 → INTOOBSV 06-29 04:51 → 2SW 06-29 09:27
PROVIDERS: ADMIT Internal Medicine; ATTEND Nurse Practitioner Family
DX: E87.5 Hyperkalemia (principal); E11.65 Type 2 diabetes mellitus with hyperglycemia; I25.119 Atherosclerotic heart disease of native coronary artery with unspecified angina pectoris; N17.9 Acute kidney failure, unspecified; I13.0 Hypertensive heart and chronic kidney disease with heart failure and stage 1 through stage 4 chronic kidney disease, or unspecified chronic kidney disease; I50.32 Chronic diastolic (congestive) heart failure; E11.22 Type 2 diabetes mellitus with diabetic chronic kidney disease; N18.30 Chronic kidney disease, stage 3 unspecified; E78.5 Hyperlipidemia, unspecified; E11.40 Type 2 diabetes mellitus with diabetic neuropathy, unspecified; E03.9 Hypothyroidism, unspecified; K21.9 Gastro-esophageal reflux disease without esophagitis; E66.01 Morbid (severe) obesity due to excess calories; F32.A Depression, unspecified; Z88.5 Allergy status to narcotic agent; Z88.0 Allergy status to penicillin; Z88.2 Allergy status to sulfonamides; Z88.8 Allergy status to other drugs, medicaments and biological substances; Z90.710 Acquired absence of both cervix and uterus; Z90.49 Acquired absence of other specified parts of digestive tract; Z98.890 Other specified postprocedural states; Z95.5 Presence of coronary angioplasty implant and graft; Z79.4 Long term (current) use of insulin; Z79.890 Hormone replacement therapy; Z79.84 Long term (current) use of oral hypoglycemic drugs; Z79.82 Long term (current) use of aspirin; Z79.899 Other long term (current) drug therapy; Z68.37 Body mass index [BMI] 37.0-37.9, adult
CPT/HCPCS: 80048 ×2; 81001; 82010; 82570; 82805; 82962 ×2; 83036; 83735; 83880; 83930; 84156; 84300; 84484 ×2; 84540; 85025; 87077; 87086; 87186; 93005 ×2; J0613; 36415; 36416; 80053; 84443; G0378; J1815; J7050; J7611

== ENCOUNTER 2024-06-17 20:12 | Emergency (ER) | payer MEDICARE ==
[2024-06-17] MEDS ORDERED: Mag-Al 1200 mg/1200 mg/30 ML UDCUP ONE (21:19)
[2024-06-17] MEDS ORDERED: Lidocaine Viscous Sol 2% 15 ml UD Cup ONE (21:20)
[2024-06-17] MEDS ORDERED: Pantoprazole 40 MG VIAL ONE (21:20)
[2024-06-17] MEDS ORDERED: Ipratropium/Albuterol 3 ML NEB ONE (21:28)
[2024-06-17 21:48] LABS: #Basophils 0.08 10x3/uL (0.0-0.2); %Basophils 0.9 % (0.0-1.0); %Eosinophils 2.6 % (0.0-10.0); %Lymphocytes 28.7 % (21.0-51.0); %Monocytes 7.4 % (0.0-10.0); %Neutrophils 59.8 % (42.0-75.0); Hematocrit 41.7 % (36.0-47.0); Hemoglobin 13.4 g/dL (12.0-16.0); Mean Corpuscular HGB CONC 32.1 g/dL (32.0-36.0); Mean Corpuscular Hemoglobin 27.7 pg (27.0-31.0); Mean Corpuscular Volume 86.2 fL (78.0-98.0); Mean Platelet Volume 9.3 fL (7.4-10.4); Platelet Count 262 10x3/uL (130-400); RBC Distribution Width 13.7 % (11.5-14.5); Red Blood Cell (RBC) Count 4.84 mill/uL (4.20-5.40)
[2024-06-17] MEDS ORDERED: Benzonatate 100 MG CAP ONE (21:56)
[2024-06-17 21:59] LABS: ALT (SGPT) 18 U/L (8-55); AST (SGOT) 26 U/L (5-34); Albumin 3.5 g/dL (3.4-4.8); Alkaline Phosphatase 80 U/L (40-110); Anion Gap 19 mmol/L (10-20); BUN (Urea Nitrogen) 19 mg/dL (9.8-20.1); Bilirubin, Total 0.3 mg/dL (0.2-1.2); Calcium 8.8 mg/dL (7.8-10.44); Carbon Dioxide 26 mmol/L (23-31); Chloride 102 mmol/L (98-107); Globulin 4.2 g/dL (2.4-3.5); Glucose 236 mg/dL (83-110); Potassium 4.8 mmol/L (3.5-5.1); Protein, Total 7.7 g/dL (5.8-8.1); Sodium 142 mmol/L (136-145)
[2024-06-17 22:04] LABS: Troponin I Less than 0.010 ng/mL (< 0.028)
[2024-06-17 23:03] LABS: Calc. Creatinine Clearance 0 mL/min (70-130); Estimated GFR 53
== END 2024-06-17 22:41 | disposition home or self-care (01) ==
LOC: ERS 20:12
DX: K21.9 Gastro-esophageal reflux disease without esophagitis (principal); E11.9 Type 2 diabetes mellitus without complications; I10 Essential (primary) hypertension
CPT/HCPCS: 71045; 80053; 83880; 84484; 85025; 93005; 94640; J2470; 96374; J7620

== ENCOUNTER 2024-11-30 21:58 | Emergency (ER) | payer MEDICARE ==
[2024-11-30 22:43] LABS: #Basophils 0.08 10x3/uL (0.0-0.2); #Eosinophils 0.22 10x3/uL (0.0-0.7); #Monocytes 0.53 10x3/uL (0.11-0.59); #Neutrophils 4.06 10x3/uL (1.40-6.50); %Eosinophils 2.9 % (0.0-10.0); %Monocytes 6.9 % (0.0-10.0); %Neutrophils 53.3 % (42.0-75.0); Hematocrit 37.6 % (36.0-47.0); Hemoglobin 12.3 g/dL (12.0-16.0); Mean Corpuscular HGB CONC 32.7 g/dL (32.0-36.0); Mean Corpuscular Hemoglobin 28.8 pg (27.0-31.0); Mean Corpuscular Volume 88.1 fL (78.0-98.0); Mean Platelet Volume 8.9 fL (7.4-10.4); Platelet Count 201 10x3/uL (130-400); RBC Distribution Width 13.5 % (11.5-14.5); Red Blood Cell (RBC) Count 4.27 mill/uL (4.20-5.40); White Blood Cell (WBC) Count 7.63 10x3/uL (4.8-10.8)
[2024-11-30] MEDS ORDERED: Acetaminophen 500 MG TAB ONE (23:02)
[2024-11-30] MEDS ORDERED: Ketorolac Tromethamine 30 MG (1 mL) VIAL ONE (23:02)
[2024-11-30 23:06] LABS: ALT (SGPT) 19 U/L (Less than 34); AST (SGOT) 18 U/L (11-34); Albumin 3.7 g/dL (3.1-4.5); Alkaline Phosphatase 86 U/L (40-110); Anion Gap 14 mmol/L (10-20); BUN (Urea Nitrogen) 31 mg/dL (9.8-20.1); Bilirubin, Total 0.4 mg/dL (0.3-1.2); Calc. Creatinine Clearance 0 mL/min (70-130); Calcium 9.2 mg/dL (7.8-10.44); Carbon Dioxide 27 mmol/L (23-31); Chloride 101 mmol/L (98-107); Estimated GFR 45; Globulin 3.1 g/dL (2.4-3.5); Glucose 283 mg/dL (83-110); Potassium 4.2 mmol/L (3.5-5.1); Protein, Total 6.8 g/dL (5.8-8.1); Sodium 138 mmol/L (136-145)
[2024-11-30 23:09] LABS: Troponin I Less than 0.010 ng/mL (< 0.028)
== END 2024-12-01 00:06 | disposition home or self-care (01) ==
LOC: ERS 21:58
DX: M79.602 Pain in left arm (principal); E11.9 Type 2 diabetes mellitus without complications; I10 Essential (primary) hypertension; E78.5 Hyperlipidemia, unspecified; I25.10 Atherosclerotic heart disease of native coronary artery without angina pectoris
CPT/HCPCS: 71045; 73080; 80053; 83880; 84484; 85025; 86141; 93005; 94760; 96374; 99284; J1885

== ENCOUNTER 2025-04-17 16:10 | Inpatient (IN) | payer MEDICARE ==
[2025-04-17 22:53] VITALS: BMI 36.6
[2025-04-18] MEDS ORDERED: Glucagon 1 MG/ML KIT IM PRN (00:13)
[2025-04-18] MEDS ORDERED: Dextrose 50% Abboject 50 ML SYRINGE SLOW IVP PRN (00:13)
[2025-04-18] MEDS ORDERED: Acetaminophen 325 MG TAB PO PRN (00:42)
[2025-04-18 00:55] LABS: #Basophils 0.07 10x3/uL (0.0-0.2); #Eosinophils 0.26 10x3/uL (0.0-0.7); #Monocytes 0.61 10x3/uL (0.11-0.59); #Neutrophils 3.93 10x3/uL (1.40-6.50); %Basophils 1.0 % (0.0-1.0); %Eosinophils 3.8 % (0.0-10.0); %Lymphocytes 27.5 % (21.0-51.0); %Monocytes 9.0 % (0.0-10.0); %Neutrophils 58.3 % (42.0-75.0); Hematocrit 27.0 % (36.0-47.0); Hemoglobin 8.4 g/dL (12.0-16.0); Mean Corpuscular Hemoglobin 27.6 pg (27.0-31.0); Mean Corpuscular Volume 88.8 fL (78.0-98.0); Platelet Count 231 10x3/uL (130-400); Red Blood Cell (RBC) Count 3.04 mill/uL (4.20-5.40); White Blood Cell (WBC) Count 6.76 10x3/uL (4.8-10.8)
[2025-04-18 01:23] LABS: ALT (SGPT) 13 U/L (Less than 34); AST (SGOT) 19 U/L (11-34); Albumin 3.1 g/dL (3.1-4.5); Alkaline Phosphatase 51 U/L (40-110); Anion Gap 13 mmol/L (10-20); BUN (Urea Nitrogen) 26 mg/dL (9.8-20.1); Bilirubin, Total 0.3 mg/dL (0.3-1.2); Calc. Creatinine Clearance 38 mL/min (70-130); Calcium 8.7 mg/dL (7.8-10.44); Carbon Dioxide 24 mmol/L (23-31); Chloride 108 mmol/L (98-107); Globulin 3.0 g/dL (2.4-3.5); Glucose 176 mg/dL (83-110); Potassium 4.6 mmol/L (3.5-5.1); Sodium 140 mmol/L (136-145)
[2025-04-18 07:38] LABS: #Basophils 0.09 10x3/uL (0.0-0.2); #Eosinophils 0.24 10x3/uL (0.0-0.7); #Monocytes 0.49 10x3/uL (0.11-0.59); #Neutrophils 3.42 10x3/uL (1.40-6.50); %Basophils 1.6 % (0.0-1.0); %Eosinophils 4.2 % (0.0-10.0); %Lymphocytes 25.4 % (21.0-51.0); %Monocytes 8.5 % (0.0-10.0); %Neutrophils 59.4 % (42.0-75.0); Hematocrit 27.3 % (36.0-47.0); Hemoglobin 8.6 g/dL (12.0-16.0); Mean Corpuscular Hemoglobin 27.9 pg (27.0-31.0); Mean Corpuscular Volume 88.6 fL (78.0-98.0); Platelet Count 221 10x3/uL (130-400); Red Blood Cell (RBC) Count 3.08 mill/uL (4.20-5.40); White Blood Cell (WBC) Count 5.75 10x3/uL (4.8-10.8)
[2025-04-18 08:39] LABS: Anion Gap 14 mmol/L (10-20); BUN (Urea Nitrogen) 22 mg/dL (9.8-20.1); Calc. Creatinine Clearance 42 mL/min (70-130); Calcium 8.5 mg/dL (7.8-10.44); Carbon Dioxide 21 mmol/L (23-31); Chloride 109 mmol/L (98-107); Glucose 138 mg/dL (83-110); Potassium 4.1 mmol/L (3.5-5.1); Sodium 140 mmol/L (136-145)
[2025-04-18] MEDS: Amiodarone 200 MG TAB PO SCH (09:04)
[2025-04-18] MEDS: Heparin 5,000 UNITS/ML VIAL SC SCH (09:05)
[2025-04-18] MEDS: FLU (Fluad Triv) 25-26 (65UP)PF 45 MCG/0.5 ML Syringe IM ONE (09:06)
[2025-04-18] MEDS: TICAGRELOR 90 MG TABLET PO SCH (09:07)
[2025-04-18 10:04] LABS: CAUTI Indications for Culture Pelvic or flank pain; Glucose, Urine (Dipstick) Normal (Negative); Leukocyte Negative Leu/uL (Negative); Protein, Urine (Dipstick) 30 mg/dL (Neg-Trace); Specific Gravity, Urine 1.016 (1.002-1.036); WBC/HPF 0-3 HPF (0-3); Yeast-Budding 2+ HPF (None Seen)
[2025-04-18 10:07] LABS: Bacteria/HPF 1+ HPF (None Seen)
[2025-04-18 10:09] LABS: Urine Culture Reflex No No
[2025-04-18 10:24] LABS: Iron 48 ug/dL (50-170); Iron Binding Capacity, Total 258 mcg/dL (265-497)
[2025-04-18] MEDS: Aspirin 81 mg Enteric Coated Tablet PO SCH (14:15)
[2025-04-18] MEDS ORDERED: Carvedilol 6.25 MG TAB PO SCH (17:00)
[2025-04-18] MEDS: NIFEdipine XL 30 MG ER.TAB PO SCH ×2 (17:12→20:35)
[2025-04-18] MEDS: Pantoprazole 40 MG DR.TAB PO SCH (20:38)
[2025-04-18] MEDS ORDERED: Rosuvastatin 10 MG TAB PO SCH (21:00)
[2025-04-18] MEDS ORDERED: Rosuvastatin 20 MG TAB PO SCH (21:00)
[2025-04-19 05:37] LABS: #Basophils 0.08 10x3/uL (0.0-0.2); #Eosinophils 0.25 10x3/uL (0.0-0.7); #Monocytes 0.49 10x3/uL (0.11-0.59); #Neutrophils 3.13 10x3/uL (1.40-6.50); %Basophils 1.4 % (0.0-1.0); %Eosinophils 4.4 % (0.0-10.0); %Lymphocytes 29.2 % (21.0-51.0); %Monocytes 8.6 % (0.0-10.0); %Neutrophils 54.8 % (42.0-75.0); Hematocrit 26.3 % (36.0-47.0); Hemoglobin 8.6 g/dL (12.0-16.0); Mean Corpuscular Hemoglobin 28.2 pg (27.0-31.0); Mean Corpuscular Volume 86.2 fL (78.0-98.0); Platelet Count 213 10x3/uL (130-400); Red Blood Cell (RBC) Count 3.05 mill/uL (4.20-5.40); White Blood Cell (WBC) Count 5.71 10x3/uL (4.8-10.8)
[2025-04-19 05:55] LABS: Albumin 3.0 g/dL (3.1-4.5); Anion Gap 13 mmol/L (10-20); BUN (Urea Nitrogen) 18 mg/dL (9.8-20.1); BUN/Creatinine Ratio 12.00; Calc. Creatinine Clearance 48 mL/min (70-130); Calcium 8.3 mg/dL (7.8-10.44); Carbon Dioxide 28 mmol/L (23-31); Chloride 103 mmol/L (98-107); Glucose 109 mg/dL (83-110); Potassium 3.9 mmol/L (3.5-5.1); Sodium 140 mmol/L (136-145)
[2025-04-19] MEDS: Rosuvastatin 20 MG TAB PO SCH (08:42)
[2025-04-19] MEDS: Aspirin 81 mg Enteric Coated Tablet PO SCH (10:33)
[2025-04-19] MEDS: Furosemide 40 MG TAB PO SCH (15:53)
[2025-04-19] MEDS: Heparin 5,000 UNITS/ML VIAL SC SCH (21:23)
[2025-04-20 05:17] LABS: #Basophils 0.09 10x3/uL (0.0-0.2); #Eosinophils 0.20 10x3/uL (0.0-0.7); #Monocytes 0.59 10x3/uL (0.11-0.59); #Neutrophils 4.96 10x3/uL (1.40-6.50); %Basophils 1.2 % (0.0-1.0); %Eosinophils 2.6 % (0.0-10.0); %Lymphocytes 21.5 % (21.0-51.0); %Monocytes 7.8 % (0.0-10.0); %Neutrophils 65.7 % (42.0-75.0); Hematocrit 28.4 % (36.0-47.0); Hemoglobin 9.5 g/dL (12.0-16.0); Mean Corpuscular Hemoglobin 28.2 pg (27.0-31.0); Mean Corpuscular Volume 84.3 fL (78.0-98.0); Platelet Count 269 10x3/uL (130-400); Red Blood Cell (RBC) Count 3.37 mill/uL (4.20-5.40); White Blood Cell (WBC) Count 7.55 10x3/uL (4.8-10.8)
[2025-04-20 05:26] LABS: Anion Gap 15 mmol/L (10-20); BUN (Urea Nitrogen) 20 mg/dL (9.8-20.1); Calc. Creatinine Clearance 39 mL/min (70-130); Calcium 8.9 mg/dL (7.8-10.44); Carbon Dioxide 30 mmol/L (23-31); Chloride 98 mmol/L (98-107); Glucose 218 mg/dL (83-110); Potassium 4.2 mmol/L (3.5-5.1); Sodium 139 mmol/L (136-145)
[2025-04-20] MEDS: Albumin 25% 25 GM (100 mL) BOT IVPB SCH (09:19)
[2025-04-20] MEDS ORDERED: AFRIN NASAL MIST 15 ML BOT NS PRN (12:05)
[2025-04-20] MEDS: Sodium Chloride 0.65% Nasal 44 ML BOT EA NARE SCH (12:26)
[2025-04-21 04:38] LABS: #Basophils 0.05 10x3/uL (0.0-0.2); #Eosinophils 0.19 10x3/uL (0.0-0.7); #Monocytes 0.56 10x3/uL (0.11-0.59); #Neutrophils 6.04 10x3/uL (1.40-6.50); %Basophils 0.6 % (0.0-1.0); %Eosinophils 2.3 % (0.0-10.0); %Lymphocytes 15.5 % (21.0-51.0); %Monocytes 6.8 % (0.0-10.0); %Neutrophils 73.7 % (42.0-75.0); Hematocrit 27.3 % (36.0-47.0); Hemoglobin 8.8 g/dL (12.0-16.0); Mean Corpuscular Hemoglobin 28.0 pg (27.0-31.0); Mean Corpuscular Volume 86.9 fL (78.0-98.0); Platelet Count 191 10x3/uL (130-400); Red Blood Cell (RBC) Count 3.14 mill/uL (4.20-5.40); White Blood Cell (WBC) Count 8.20 10x3/uL (4.8-10.8)
[2025-04-21 04:47] LABS: Anion Gap 14 mmol/L (10-20); BUN (Urea Nitrogen) 23 mg/dL (9.8-20.1); Calc. Creatinine Clearance 38 mL/min (70-130); Calcium 8.8 mg/dL (7.8-10.44); Carbon Dioxide 28 mmol/L (23-31); Chloride 101 mmol/L (98-107); Glucose 193 mg/dL (83-110); Potassium 4.2 mmol/L (3.5-5.1); Sodium 139 mmol/L (136-145)
[2025-04-21] MEDS: Calcium Carbonate 500 MG ChewTAB PO PRN (04:58)
[2025-04-21] MEDS: Furosemide 20 MG TAB PO SCH (07:20)
[2025-04-21] MEDS: Sodium Ferric Gluconate 250 MG in Sodium Chloride 0.9% 250 ML 250 ML IVPB SCH (11:08)
[2025-04-21 12:04] LABS: Urea Nitrogen, Random Urine 282.0 mg/dl
[2025-04-21] MEDS: Insulin Glargine 30 UNITS/0.3 ML VIAL SC SCH (16:52)
[2025-04-22 05:04] LABS: Anion Gap 16 mmol/L (10-20); BUN (Urea Nitrogen) 27 mg/dL (9.8-20.1); Calc. Creatinine Clearance 37 mL/min (70-130); Calcium 9.0 mg/dL (7.8-10.44); Carbon Dioxide 28 mmol/L (23-31); Chloride 99 mmol/L (98-107); Glucose 208 mg/dL (83-110); Magnesium 1.8 mg/dL (1.6-2.6); Potassium 4.1 mmol/L (3.5-5.1); Sodium 139 mmol/L (136-145)
[2025-04-22] MEDS: Insulin Glargine 30 UNITS/0.3 ML VIAL SC SCH (08:39)
[2025-04-22] MEDS: Magnesium Oxide 400 MG TAB PO SCH (08:47)
[2025-04-22] MEDS: EPOETIN ALFA-EPBX (ESRD) 10,000 UNITS/ML VIAL SC SCH (11:38)
[2025-04-22] MEDS: Sodium Ferric Gluconate 250 MG in Sodium Chloride 0.9% 250 ML 250 ML IVPB SCH (11:38)
[2025-04-22] MEDS: Senokot S 8.6-50 MG TAB PO SCH (22:45)
[2025-04-23 04:23] LABS: #Basophils 0.07 10x3/uL (0.0-0.2); #Eosinophils 0.14 10x3/uL (0.0-0.7); #Monocytes 0.89 10x3/uL (0.11-0.59); #Neutrophils 8.25 10x3/uL (1.40-6.50); %Basophils 0.7 % (0.0-1.0); %Eosinophils 1.3 % (0.0-10.0); %Lymphocytes 9.6 % (21.0-51.0); %Monocytes 8.5 % (0.0-10.0); %Neutrophils 78.8 % (42.0-75.0); Hematocrit 28.3 % (36.0-47.0); Hemoglobin 8.8 g/dL (12.0-16.0); Mean Corpuscular Hemoglobin 28.0 pg (27.0-31.0); Mean Corpuscular Volume 90.1 fL (78.0-98.0); Platelet Count 208 10x3/uL (130-400); Red Blood Cell (RBC) Count 3.14 mill/uL (4.20-5.40); White Blood Cell (WBC) Count 10.47 10x3/uL (4.8-10.8)
[2025-04-23 04:30] LABS: Albumin 3.6 g/dL (3.1-4.5); Anion Gap 14 mmol/L (10-20); BUN (Urea Nitrogen) 27 mg/dL (9.8-20.1); BUN/Creatinine Ratio 14.29; Calc. Creatinine Clearance 38 mL/min (70-130); Calcium 8.8 mg/dL (7.8-10.44); Carbon Dioxide 27 mmol/L (23-31); Chloride 101 mmol/L (98-107); Glucose 177 mg/dL (83-110); Potassium 3.8 mmol/L (3.5-5.1); Sodium 138 mmol/L (136-145)
[2025-04-23] MEDS: Spironolactone 25 MG TAB PO SCH (10:52)
[2025-04-23 23:54] LABS: Glucose, Urine (Dipstick) Greater than 1000 mg/dL (Negative); Leukocyte 500 Leu/uL (Negative); Protein, Urine (Dipstick) 30 mg/dL (Neg-Trace); Specific Gravity, Urine 1.020 (1.002-1.036); WBC/HPF Greater than 50 HPF (0-3); Yeast-Budding 2+ HPF (None Seen)
[2025-04-23 23:58] LABS: Bacteria/HPF 1+ HPF (None Seen)
[2025-04-24 04:33] LABS: Albumin 3.4 g/dL (3.1-4.5); Anion Gap 12 mmol/L (10-20); BUN (Urea Nitrogen) 32 mg/dL (9.8-20.1); BUN/Creatinine Ratio 14.81; Calc. Creatinine Clearance 33 mL/min (70-130); Calcium 8.9 mg/dL (7.8-10.44); Carbon Dioxide 29 mmol/L (23-31); Chloride 100 mmol/L (98-107); Glucose 180 mg/dL (83-110); Potassium 4.0 mmol/L (3.5-5.1); Sodium 137 mmol/L (136-145)
[2025-04-24] MEDS: Spironolactone 25 MG TAB PO SCH (10:34)
[2025-04-24 11:14] VITALS: BMI 36.6
[2025-04-24] MEDS: Insulin Glargine 30 UNITS/0.3 ML VIAL SC SCH (11:27)
[2025-04-24 11:50] VITALS: BP 129/61; TEMP 97.6
== END 2025-04-24 14:50 | DRG 682 ==
LOC: 2NO 22:46
PROVIDERS: ADMIT Internal Medicine; ATTEND Internal Medicine
DX: N17.9 Acute kidney failure, unspecified (principal); I21.3 ST elevation (STEMI) myocardial infarction of unspecified site; J96.01 Acute respiratory failure with hypoxia; I47.20 Ventricular tachycardia, unspecified; E87.21 Acute metabolic acidosis; I13.0 Hypertensive heart and chronic kidney disease with heart failure and stage 1 through stage 4 chronic kidney disease, or unspecified chronic kidney disease; N39.0 Urinary tract infection, site not specified; G47.33 Obstructive sleep apnea (adult) (pediatric); I25.10 Atherosclerotic heart disease of native coronary artery without angina pectoris; Z88.5 Allergy status to narcotic agent; Z88.0 Allergy status to penicillin; Z88.2 Allergy status to sulfonamides; Z79.899 Other long term (current) drug therapy; Z98.890 Other specified postprocedural states; Z68.36 Body mass index [BMI] 36.0-36.9, adult; K21.9 Gastro-esophageal reflux disease without esophagitis; E78.5 Hyperlipidemia, unspecified; R04.0 Epistaxis; E11.21 Type 2 diabetes mellitus with diabetic nephropathy; D63.1 Anemia in chronic kidney disease; I50.9 Heart failure, unspecified; E83.42 Hypomagnesemia; E66.01 Morbid (severe) obesity due to excess calories
CPT/HCPCS: 36415; 36416; 71045; 80048; 80053; 80069; 81001; 82040; 82043; 82570; 82728; 83540; 83550; 83735; 83880; 84300; 84484; 84540; 85025; 93005; 93010; 97139; A4217; J1644; J1815; J2916; J7030; J7050; P9047; Q5105

== ENCOUNTER 2025-04-28 07:11 | Emergency (ER) | payer MEDICARE ==
[2025-04-28 07:39] LABS: #Basophils 0.05 10x3/uL (0.0-0.2); #Eosinophils 0.20 10x3/uL (0.0-0.7); #Monocytes 0.80 10x3/uL (0.11-0.59); #Neutrophils 5.55 10x3/uL (1.40-6.50); %Basophils 0.6 % (0.0-1.0); %Eosinophils 2.6 % (0.0-10.0); %Lymphocytes 13.9 % (21.0-51.0); %Monocytes 10.3 % (0.0-10.0); %Neutrophils 71.7 % (42.0-75.0); Hematocrit 31.0 % (36.0-47.0); Hemoglobin 9.9 g/dL (12.0-16.0); Mean Corpuscular Hemoglobin 28.3 pg (27.0-31.0); Mean Corpuscular Volume 88.6 fL (78.0-98.0); Platelet Count 264 10x3/uL (130-400); Red Blood Cell (RBC) Count 3.50 mill/uL (4.20-5.40); White Blood Cell (WBC) Count 7.75 10x3/uL (4.8-10.8)
[2025-04-28 08:08] LABS: ALT (SGPT) 9 U/L (Less than 34); AST (SGOT) 18 U/L (11-34); Albumin 3.2 g/dL (3.1-4.5); Alkaline Phosphatase 67 U/L (40-110); Anion Gap 18 mmol/L (10-20); BUN (Urea Nitrogen) 36 mg/dL (9.8-20.1); Bilirubin, Total 0.6 mg/dL (0.3-1.2); Calc. Creatinine Clearance 0 mL/min (70-130); Calcium 8.6 mg/dL (7.8-10.44); Carbon Dioxide 26 mmol/L (23-31); Chloride 100 mmol/L (98-107); Globulin 3.3 g/dL (2.4-3.5); Glucose 185 mg/dL (83-110); Potassium 4.5 mmol/L (3.5-5.1); Sodium 139 mmol/L (136-145)
[2025-04-28] MEDS ORDERED: Furosemide 40 MG (4 mL) VIAL ONE (08:50)
[2025-04-28] MEDS ORDERED: Nitroglycerin 0.4 MG TAB 1 EACH ONE (08:51)
[2025-04-28] MEDS ORDERED: Nitroglycerin 2% Ointment 1 INCH/1 GM Packet ONE (09:52)
[2025-04-28] MEDS ORDERED: cefTRIAXone (ROCEPHIN) 2 GM VIAL ONE (11:13)
== END 2025-04-28 13:10 ==
LOC: ERS 07:11
DX: J18.9 Pneumonia, unspecified organism (principal); J90 Pleural effusion, not elsewhere classified; D64.9 Anemia, unspecified; R09.02 Hypoxemia; R79.89 Other specified abnormal findings of blood chemistry; I25.10 Atherosclerotic heart disease of native coronary artery without angina pectoris; I25.2 Old myocardial infarction; E78.00 Pure hypercholesterolemia, unspecified; K21.9 Gastro-esophageal reflux disease without esophagitis; E11.22 Type 2 diabetes mellitus with diabetic chronic kidney disease; I13.0 Hypertensive heart and chronic kidney disease with heart failure and stage 1 through stage 4 chronic kidney disease, or unspecified chronic kidney disease; I50.30 Unspecified diastolic (congestive) heart failure; N18.9 Chronic kidney disease, unspecified; N17.9 Acute kidney failure, unspecified; Z79.899 Other long term (current) drug therapy; Z79.4 Long term (current) use of insulin; Z79.51 Long term (current) use of inhaled steroids
CPT/HCPCS: 71045; 71275; 80053; 83605; 83880; 84484; 85025; 85379; 87040; 93005; 96365; 96375; 99285; J0696; J1940